=== PATIENT | male | born 1935 | race Caucasian/White ===

== ENCOUNTER 2020-07-17 09:46 | Inpatient (IN) | payer OTHER ==
--- OUTSIDE RECORDS SUMMARY | 2020-07-17 09:48 | XMS REPORT | Continuity of Care Document ---
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 Diabetes 1-24 Family mellitus Mellitus 00:00: Practi c 00 e Neuropathy Neuropathy Problem Active [place] due to Due to 7-16 Family diabetes Diabetes 00:00: Practi c mellitus Mellitus 00 e Hypothyroi Hypothyroi Problem Active 2018-02 [place] dism dism 2-18 Family 00:00: Practic 00 e Hyperchole Hyperchole Problem Active 2018-02 [place] sterolemia sterolemia 2-18 Fa avel 00:00: Practic 00 e Essential Essential Problem Active 2018-02 Marry xenia hypertensi Hypertensi 2-02 Fa avel on on 00:00: Practic 00 e Allergies, Adverse Reactions, Alerts This patient has no known allergies or adverse reactions. Social History Smoking Status Start Date Stop Date Source Former Smoker [facility] Family P ractice Medications Ordered Filled Start Stop Current Ordering Indication Dosage Frequency Signature Comments Components Source Medication Medication Date Date Medication? Clinician (SIG) Name Name atorvastati atorvastati No 1 Q1D atorvastat [facility] n 40 mg n 40 mg in 40 mg Famil y tablet Take tablet Take tablet Practic 1 tablet 1 tablet Take 1 e every day every day tablet by oral by oral every day route. route. by oral route. gabapentin gabapentin No 1capsul TID gabapentin [facility] 100 mg 100 mg e(s) 100 mg Family capsule capsule capsule Practi c Take 1 Take 1 Take 1 e capsule 3 capsule 3 capsule 3 times a day times a day times a by oral by oral day by route. route. oral route. glipizide glipizide No 1 Q1D glipizide [facility] 10 mg 10 mg 10 mg Family tablet Take tablet Take tablet Practic 1 tablet 1 tablet Take 1 e every day every day tablet by oral by oral every day route. route. by oral route. hydroxyzine hydroxyzine No 1 TID hydroxyzin [facility] HCl 25 mg HCl 25 mg e HCl 25 F amily tablet Take tablet Take mg tablet Practic 1 tablet 3 1 tablet 3 Take 1 e times a day times a day tablet 3 by oral by oral times a route. route. day by oral route. Levemir Levemir No Levemir [place] e FlexTouch FlexTouch FlexTouch Family U-100 U-100 U-100 Practic Insulin 100 Insulin 100 Insulin e unit/mL (3 unit/mL (3 100 mL) mL) unit/mL (3 subcutaneou subcutaneou mL) s pen s pen subcutaneo Inject by Inject by us pen subcutaneou subcutaneou Inject by s route. s route. subcutaneo us route. levothyroxi levothyroxi No 1capsul Q1D levothyrox [facility] ne 50 mcg ne 50 mcg e(s) ine 50 mcg Family capsule capsule capsule Practi c Take 1 Take 1 Take 1 e capsule capsule capsule every day every day every day by oral by oral by oral route. route. route. losartan 25 losartan 25 No 1 Q1D losartan [place] mg tablet mg tablet 25 mg Fami ly Take 1 Take 1 tablet Practic tablet tablet Take 1 e every day every day tablet by oral by oral every day route. route. by oral route. metformin metformin No 1 BID metformin [facility] 1,000 mg 1,000 mg 1,000 mg Fam sheree tablet Take tablet Take tablet Practic 1 tablet 1 tablet Take 1 e twice a day twice a day tablet by oral by oral twice a route. route. day by oral route. Immunizations Ordered Immunization Filled Immunization Date Status Commen ts Source Name Name influenza, influenza, 2000-01-23 Completed [facility] injectable, injectable, 00:00:00 Practice quadrivalent quadrivalent Procedures This patient has no known procedures. Plan of Care Planned Activity Planned Date Details Comments Source Future Appointment 2020-09-13 00:00:00 Mee Lois daniel [facility] De[place]re, [address]; [address], [place] [address] Instructions [facility] Encounters Start End Encounter Admission Attending Care Care Encounter Source Date/Time Date/Time Type Type Clinicians Facility Department ID 2020-03-14 2020-03-14 Mee [facility] [place] - [id number] [place] 00:00:00 00:00:00 NimeshCarl wilcox DIRECTOR MEDICAL ECONOMICS: Medical - Practi c [email or web address]_ [facility], [address] [address], [place] [address] , Ph. Results This patient has no known results.
[2020-07-17 10:35] LABS: Absolute Lymphocytes (CBC) 1.4 K/uL (0.7-4.9); Basophils % 0.6 % (0-1.3); Lymphocytes % 19.7 % (15.3-44.8); MPV 11.5 fL (7.6-11.3)
[2020-07-17 10:43] LABS: Protime INR 0.97
[2020-07-17 10:44] LABS: Arterial Blood Carboxyhemoglob 1.2 % (0-1.5); Blood Gas Oxyhemoglobin 92.7 % (94-97); Blood O2 Saturation 94.7 % (92-98.5)
[2020-07-17 11:10] LABS: Albumin 3.7 g/dL (3.4-5.0); Bilirubin Direct 0.2 mg/dL (0-0.2); Bilirubin Total 0.6 mg/dL (0.2-1.0); Protein, Total 6.9 g/dL (6.4-8.2); Troponin (Emerg Dept Use Only) 0.03 ng/mL (0.0-0.045)
[2020-07-17 11:13] LABS: Magnesium 1.7 mg/dL (1.8-2.4); Potassium 4.3 mmol/L (3.5-5.1)
--- NOTE | 2020-07-17 11:58 | ER ---
Nurse's Notes [facility] Name: Kevin Duffy Age: 85 yrs Sex: Male : 1935 Arrival Date: 07/17/2020 Time: 09:48 Bed 7 Private MD: Diagnosis: Acute dyspnea. R/O Sepsis. Numbness left leg Presentation: 07/17 09:48 Chief complaint: EMS states: Toned out for SOB since this morning,cough x 2 weeks pt jl7 sitting in the house and started sweating, once O2 was placed on pt he reported improvement in symptoms. Coronavirus screen: Client denies travel out of the [place] in the last 14 days. At this time, the client does not indicate any symptoms associated with coronavirus-19. Ebola Screen: No symptoms or risks identified at this time. Initial Sepsis Screen: Does the patient meet any 2 criteria? No. Patient's initial sepsis screen is negative. Does the patient have a suspected source of infection? No. Patient's initial sepsis screen is negative. Risk Assessment: Do you want to hurt yourself or someone else? Patient reports no desire to harm self or others. Onset of symptoms was July 17, 2020. Care prior to arrival: None. 09:48 Method Of Arrival: EMS: [facility] 09:48 Acuity: XIMENA 2 jl7 Triage Assessment: 09:50 General: Appears distressed, uncomfortable, Behavior is calm, cooperative, appropriate jl7 for age. Pain: Denies pain. Neuro: Level of Consciousness is awake, alert, obeys commands, Oriented to person, place, time, situation. Cardiovascular: Rhythm is sinus rhythm. Respiratory: Reports shortness of breath at rest Airway is patent Respiratory effort is even, unlabored, Respiratory pattern is regular, symmetrical, Onset: The symptoms/episode began/occurred suddenly, the patient reports symptoms have resolved. Derm: Skin is diaphoretic, Skin is normal, Skin temperature is warm. Historical: - Allergies: 10:11 No Known Allergies; jl7 - Home Meds: 10:11 losartan 25 mg oral tab [Active]; metformin 500 mg Oral tab [Active]; hydroxyzine HCl jl7 25 mg Oral tab [Active]; levothyroxine 50 mcg tab [Active]; gabapentin 100 mg oral cap [Active]; glipizide 10 mg Oral tab [Active]; atorvastatin 40 mg oral tab [Active]; - PMHx: 10:11 Hypertension; Diabetes - NIDDM; Hypothyroidism; jl7 - PSHx: 10:11 None; jl7 - Immunization history:: Adult Immunizations up to date, Client reports receiving the 2nd dose of the Covid vaccine, Date received: May 23, 2020. - Social history:: Smoking status: Patient denies any tobacco usage or history of. Screenin:13 Abuse screen: Denies threats or abuse. Denies injuries from another. Nutritional jl7 screening: No deficits noted. Tuberculosis screening: No symptoms or risk factors identified. Fall Risk IV access (20 points). Total Parrish Fall Scale indicates No Risk (0-24 pts). Assessment: 09:50 General: See triage assessment. jl7 10:05 Reassessment: Daughter at bedside. jl7 11:50 Reassessment: Pt to CT. hb 12:04 Reassessment: Pt returned from CT. hb 13:00 Reassessment: Patient appears in no apparent distress at this time. No changes from [facility] previously documented assessment. Patient and/or family updated on plan of care and expected duration. Pain level reassessed. Patient is alert, oriented x 3, equal unlabored respirations, skin warm/dry/pink. 14:00 Reassessment: Patient appears in no apparent distress at this time. No changes from [facility] previously documented assessment. Patient and/or family updated on plan of care and expected duration. Pain level reassessed. Patient is alert, oriented x 3, equal unlabored respirations, skin warm/dry/pink. Vital Signs: 09:48 BP 180 / 95; Pulse 106; Resp 18; Pulse Ox 93% ; Pain 0/10; jl7 10:13 BP 163 / 79; Pulse 98; Resp 19 S; Pulse Ox 94% on R/A; Weight 106.59 kg (R); Height 6 jl7 ft. 3 in. (190.50 cm); Pain 0/10; 11:00 BP 152 / 80; Pulse 97; Resp 19; Pulse Ox 95% ; jl7 12:00 BP 157 / 84; Pulse 99; Resp 17; Pulse Ox 95% ; jl7 13:00 BP 164 / 78; Pulse 97; Resp 17; Pulse Ox 93% ; jl7 14:00 BP 154 / 88; Pulse 93; Resp 16; Pulse Ox 93% ; jl7 14:30 BP 150 / 80; Pulse 96; Resp 17; Pulse Ox 93% ; jl7 10:13 Body Mass Index 29.37 (106.59 kg, 190.50 cm) jl7 ED Course: 09:48 Patient arrived in ED. jl7 09:50 Arm band placed on right wrist. EKG completed in triage. Results shown to MD. jl7 09:50 Patient has correct armband on for positive identification. Placed in gown. Bed in low jl7 position. Call light in reach. Side rails up X2. school lunch monitor on. Pulse ox on. NIBP on. 09:51 Triage completed. jl7 09:54 Srinivas Us MD is Attending Physician. pkl 10:02 Blayne Espinal RN is Primary Nurse. jl7 10:20 Inserted saline lock: 20 gauge in right antecubital area, using aseptic technique. jl7 Blood collected. 10:20 Initial lab(s) drawn, by mo, sent to lab. First set of blood cultures drawn by me. jl7 Inserted. 10:24 Second set of blood cultures drawn by me. jl7 10:28 COVID swab sent to lab. jl7 10:41 Basic Metabolic Panel Sent. jl7 10:41 CBC with Diff Sent. jl7 10:41 LFT's Sent. jl7 10:41 Magnesium Sent. jl7 10:54 XRAY Chest (1 view) In Process Unspecified. EDMS 11:55 Michael Temple DO is Hospitalizing Provider. pkl 12:00 CT Chest For PE Angio In Process Unspecified. EDMS 14:48 No provider procedures requiring assistance completed. Patient admitted, IV remains in jl7 place. intact, No redness/swelling at site. 14:48 Repeat lab(s) drawn. by mo, sent to lab. jl7 Administered Medications: 12:07 Drug: NS 0.9% 500 ml Route: IV; Rate: bolus; Site: right antecubital; jl7 12:45 Follow up: Response: No adverse reaction; IV Status: Completed infusion; IV Intake: jl7 500ml 13:11 Drug: NS 0.9% 1000 ml Route: IV; Rate: 100 ml/hr; Site: right antecubital; jl7 14:30 Follow up: Response: No adverse reaction; IV Status: Infusion continued upon admission jl7 Intake: 12:45 IV: 500ml; Total: 500ml. jl7 Outcome: 11:57 Decision to Hospitalize by Provider. pkgregory 14:50 Admitted to Tele accompanied by tech, via wheelchair, room 231, with chart, Report jl7 called to [facility] Mcmillan 14:50 Condition: stable 14:50 Discharge instructions given to patient, Instructed on the need for admit, Demonstrated understanding of instructions. 15:20 Patient left the ED. jl7 Signatures: Dispatcher [employer] EDSrinivas Hinds MD MD pkJoanna Vigil, RN RN Blayne Hill RN RN jl7
--- NOTE | 2020-07-17 11:58 | EDPHYS ---
Physician Documentation [facility] Name: Kevin Duffy Age: 85 yrs Sex: Male : 1935 Arrival Date: 07/17/2020 Time: 09:48 Bed 7 Private MD: ED Physician Srinivas Us HPI: 07/17 10:03 This 85 yrs old Male presents to ER via EMS with complaints of Shortness Of pkl Breath. 10:03 The patient has shortness of breath at rest. Onset: The symptoms/episode began/occurred pkl 2 week(s) ago, and became worse today. Associated signs and symptoms: Pertinent positives: non-productive cough, numbness left leg started yesterday. Historical: - Allergies: 10:11 No Known Allergies; jl7 - Home Meds: 10:11 losartan 25 mg oral tab [Active]; metformin 500 mg Oral tab [Active]; hydroxyzine HCl jl7 25 mg Oral tab [Active]; levothyroxine 50 mcg tab [Active]; gabapentin 100 mg oral cap [Active]; glipizide 10 mg Oral tab [Active]; atorvastatin 40 mg oral tab [Active]; - PMHx: 10:11 Hypertension; Diabetes - NIDDM; Hypothyroidism; jl7 - PSHx: 10:11 None; jl7 - Immunization history:: Adult Immunizations up to date, Client reports receiving the 2nd dose of the Covid vaccine, Date received: May 23, 2020. - Social history:: Smoking status: Patient denies any tobacco usage or history of. ROS: 10:03 Eyes: Negative for injury, pain, redness, and discharge, ENT: Negative for injury, pkl pain, and discharge, Neck: Negative for injury, pain, and swelling, Cardiovascular: Negative for chest pain, palpitations, and edema. 10:03 Respiratory: Positive for cough, with no reported sputum, shortness of breath, at rest. 10:03 Abdomen/GI: Negative for abdominal pain, nausea, vomiting, and diarrhea. 10:03 Back: Negative for acute changes. 10:03 : Negative for urinary symptoms. 10:03 MS/extremity: Positive for paresthesias, of the left leg. 10:03 Skin: Negative for rash. 10:03 Neuro: Positive for numbness, of the left leg, Negative for altered mental status, loss of consciousness. Exam: 10:03 Head/Face: Normocephalic, atraumatic. Eyes: Pupils equal round and reactive to light, pkl extra-ocular motions intact. Lids and lashes normal. Conjunctiva and sclera are non-icteric and not injected. Cornea within normal limits. Periorbital areas with no swelling, redness, or edema. ENT: Nares patent. No nasal discharge, no septal abnormalities noted. Tympanic membranes are normal and external auditory canals are clear. Oropharynx with no redness, swelling, or masses, exudates, or evidence of obstruction, uvula midline. Mucous membranes moist. Neck: Trachea midline, no thyromegaly or masses palpated, and no cervical lymphadenopathy. Supple, full range of motion without nuchal rigidity, or vertebral point tenderness. No Meningismus. Chest/axilla: Normal chest wall appearance and motion. Nontender with no deformity. No lesions are appreciated. Cardiovascular: Regular rate and rhythm with a normal S1 and S2. No gallops, murmurs, or rubs. Normal PMI, no JVD. No pulse deficits. 10:03 Respiratory: mild respiratory distress is noted, Respirations: labored breathing, that is mild, Breath sounds: rales, that are mild, are scattered. 10:03 Abdomen/GI: Bowel sounds: normal, Palpation: abdomen is soft and non-tender, in all quadrants. 10:03 Back: Exam negative for acute changes. 10:03 : Exam negative for acute changes. 10:03 Musculoskeletal/extremity: Extremities: grossly normal except: noted in the numbness left le:03 Skin: Exam negative for rash. 10:03 Neuro: Orientation: appropriate for stated age, Mentation: is normal, Cranial nerves: grossly normal, Motor: is normal, Sensation: numbness, that is mild, of the left leg. Vital Signs: 09:48 BP 180 / 95; Pulse 106; Resp 18; Pulse Ox 93% ; Pain 0/10; jl7 10:13 BP 163 / 79; Pulse 98; Resp 19 S; Pulse Ox 94% on R/A; Weight 106.59 kg (R); Height 6 jl7 ft. 3 in. (190.50 cm); Pain 0/10; 11:00 BP 152 / 80; Pulse 97; Resp 19; Pulse Ox 95% ; jl7 12:00 BP 157 / 84; Pulse 99; Resp 17; Pulse Ox 95% ; 7 13:00 BP 164 / 78; Pulse 97; Resp 17; Pulse Ox 93% ; 7 14:00 BP 154 / 88; Pulse 93; Resp 16; Pulse Ox 93% ; 7 14:30 BP 150 / 80; Pulse 96; Resp 17; Pulse Ox 93% ; 7 10:13 Body Mass Index 29.37 (106.59 kg, 190.50 cm) [facility] MDM: 09:54 Patient medically screened. pkl 11:53 Data reviewed: vital signs, nurses notes, lab test result(s), EKG, radiologic studies, pkl CT scan, plain films. ED course: Acure dyspnea. R/O Sepsis. Numbness left leg. 11:53 ED course: talked to Elias ( BUSINESS CONTINUITY DIRECTOR ) for observation ( Dr. Temple ). pk 07/17 10:13 Order name: Basic Metabolic Panel pk 07/17 10:13 Order name: CBC with Diff pk 07/17 10:13 Order name: LFT's pk 07/17 10:13 Order name: Magnesium pk 07/17 10:13 Order name: NT PRO-BNP; Complete Time: 11:32 pk 07/17 10:13 Order name: PT-INR; Complete Time: 10:56 pk 07/17 10:13 Order name: Troponin (emerg Dept Use Only); Complete Time: 11:32 pk 07/17 10:13 Order name: D-Dimer; Complete Time: 10:56 pk 07/17 10:13 Order name: Blood Culture Adult (2) pk 07/17 10:13 Order name: ABG; Complete Time: 10:56 pk 07/17 10:13 Order name: Basic Metabolic Panel; Complete Time: 11:32 EDMS 07/17 10:13 Order name: CBC with Automated Diff; Complete Time: 10:56 EDAL 07/17 10:13 Order name: Liver (Hepatic) Function; Complete Time: 11:32 EDMS 07/17 10:13 Order name: XRAY Chest (1 view) pk 07/17 10:13 Order name: EKG; Complete Time: 10:14 pk 07/17 10:13 Order name: Cardiac monitoring; Complete Time: 10:16 pkl 07/17 10:13 Order name: EKG - Nurse/Tech; Complete Time: 10:15 pkl 07/17 10:13 Order name: IV Saline Lock; Complete Time: 10:40 pkl 07/17 10:13 Order name: Labs collected and sent; Complete Time: 10:40 pkl 07/17 10:13 Order name: Magnesium; Complete Time: 11:32 EDMS 07/17 10:14 Order name: Lactate; Complete Time: 11:32 pkl 07/17 11:35 Order name: CT Chest For PE Angio; Complete Time: 12:26 pkl 07/17 11:45 Order name: SARS-COV-2 RT PCR; Complete Time: 11:52 EDMS 07/17 13:17 Order name: Brain Wo Cont EDMS 07/17 10:13 Order name: O2 Per Protocol; Complete Time: 10:16 pkl 07/17 10:13 Order name: O2 Sat Monitoring; Complete Time: 10:16 pkl Administered Medications: 12:07 Drug: NS 0.9% 500 ml Route: IV; Rate: bolus; Site: right antecubital; jl7 12:45 Follow up: Response: No adverse reaction; IV Status: Completed infusion; IV Intake: jl7 500ml 13:11 Drug: NS 0.9% 1000 ml Route: IV; Rate: 100 ml/hr; Site: right antecubital; jl7 14:30 Follow up: Response: No adverse reaction; IV Status: Infusion continued upon admission jl7 Disposition: 07/17/20 11:57 Hospitalization ordered by Michael Temple for Observation. Preliminary diagnosis is Acute dyspnea. R/O Sepsis. Numbness left leg. - Bed requested for Telemetry/MedSurg (observation). - Status is Observation. jl7 - Condition is Stable. - Problem is new. - Symptoms are unchanged. Signatures: Dispatcher [employer] EDAL Glenna Alonso Pin, MD MD pkl Leal, Jahala, RN RN jl7 Corrections: (The following items were deleted from the chart) 10:54 10:23 CORONAVIRUS+MR.LAB.BRZ ordered. EDAL EDMS 14:13 11:57 Hospitalization Ordered by Michael Temple DO for Observation. Preliminary bd diagnosis is Acute dyspnea. R/O Sepsis. Numbness left leg. Bed requested for Telemetry/MedSurg (observation). Status is Observation. Condition is Stable. Problem is new. Symptoms are unchanged. pkl 15:20 14:13 07/17/2020 11:57 Hospitalization Ordered by Michael Temple DO for Observation. jl7 Preliminary diagnosis is Acute dyspnea. R/O Sepsis. Numbness left leg. Bed requested for Telemetry/MedSurg (observation). Status is Observation. Condition is Stable. Problem is new. Symptoms are unchanged. bd
--- NOTE | 2020-07-17 12:08 | RAD REPORT ---
EXAM DESCRIPTION: CT - Chest For Pe Angio - 07/17/2020 12:00 pm CLINICAL HISTORY: Chest pain. DYSPNEA COMPARISON: No comparisons TECHNIQUE: CT angiogram of the pulmonary arteries was performed with MIP. All CT scans are performed using dose optimization technique as appropriate and may include automated exposure control or mA/KV adjustment according to patient size. FINDINGS: No evidence of pulmonary thromboembolism. No acute aortic finding demonstrated. The lungs are mildly emphysematous but clear of acute infiltrate. No significant pericardial or pleural fluid. No concerning bony finding. Esophagus is dilated with a small hiatal hernia present. IMPRESSION: No evidence of pulmonary thromboembolism. Mild diffuse COPD is present. Mild hiatal hernia with mild dilatation of the esophagus present containing food stuff.
--- NOTE | 2020-07-17 12:37 | RAD REPORT ---
EXAM DESCRIPTION: RAD - Chest Single View - 07/17/2020 10:54 am CLINICAL HISTORY: DYSPNEA Chest pain. COMPARISON: Chest Pa And Lat (2 Views) dated 07/04/2020; CHEST SINGLE VIEW dated 10/26/2011; CHEST PA A ND LAT 2 VIEW dated 08/20/2008; Chest For Pe Angio dated 07/17/2020 FINDINGS: Portable technique limits examination quality. The lungs are mildly emphysematous but grossly clear. The heart is normal in size. No displaced fract ures. IMPRESSION: Mild COPD.
[2020-07-17] MEDS ORDERED: LABETALOL 20 MG/4ML SYRINGE IV PRN (14:35)
[2020-07-17] MEDS ORDERED: SODIUM CHLORIDE 0.9% 10ML INJ IV PRN (14:39)
--- NOTE | 2020-07-17 14:48 | P.HP ---
Certification for Inpatient Patient admitted to: Observation With expected LOS: <2 Midnights Patient will require the following post-hospital care: None Practitioner: I am a practitioner with admitting privileges, knowledge of patient current condition, hospital course, and medical plan of care. Services: Services provided to patient in accordance with Admission requirements found in Title 42 Section 412.3 of the Code of Federal Regulations Patient History Date of Service: 07/17/20 Reason for admission: SOB, dizzness History of Present Illness: Patient is an 85-year-old male with a past medical history significant for hypothyroidism, hypertension, hyperlipidemia, DM 2, anxiety disorder who presents with complaint of shortness of breath that has been ongoing for the past 2 weeks . Patient also reports that he has been having bilateral lower extremity weakness for some time now. Patient reports associated signs and symptoms of left leg numbness, cough and dizziness. Patient reported that he gets dizzy whenever he bend down for the past 1 year. Patient followed up with his building wrecker recently and was scheduled for a stress test next week per patient report. Patient denies any other signs and symptoms. Symptoms are aggravated with his exertion and relieved by nothing. Patient decided to present to the hospital due to worsening symptoms. Allergies amoxicillin [Amoxicillin] Adverse Reaction (Verified 10/26/11 10:49) increase in blood sugar Home medications list reviewed: No Home Medications: Insulin Detemir [Levemir] 52 units SQ DAILY WITH BREAKFAST 10/26/11 Levothyroxine Sodium [Synthroid] 50 mcg PO DAILY 10/26/11 Atorvastatin Calcium 40 mg PO BEDTIME 07/17/20 Dextromethorphan/Guaifenesin 15 ml PO Q6H PRN 07/17/20 Gabapentin 100 mg PO BID 07/17/20 Insulin Detemir [Levemir] 18 - 20 unit SQ BEDTIME 07/17/20 Losartan Potassium 25 mg PO BEDTIME 07/17/20 Metformin HCl 1,000 mg PO BIDWM 07/17/20 Multivitamin 1 each PO DAILY 07/17/20 glipiZIDE [Glipizide] 10 mg PO BIDWM 07/17/20 hydrOXYzine HCL [Atarax*] 1 tab PO BEDTIME 07/17/20 - Past Medical/Surgical History Diabetic: Yes -: DM 2. -: Hypertension -: Hypothyroidism -: Hyperlipidemia - Social History Smoking Status: Never smoker Alcohol use: No CD- Drugs: No Caffeine use: Yes Place of Residence: Home Review of Systems General: Unremarkable Eyes: Unremarkable ENT: Unremarkable Respiratory: Cough, Shortness of Breath, SOB with Excertion Cardiovascular: Other (Dizziness ) Gastrointestinal: Unremarkable Genitourinary: Unremarkable Musculoskeletal: Unremarkable Integumentary: Unremarkable Neurological: Weakness, Numbness Lymphatics: Unremarkable Physical Examination - Physical Exam General: Alert, Oriented x3 HEENT: Atraumatic, PERRLA, Mucous membr. moist/pink, EOMI, Sclerae nonicteric Neck: Supple, 2+ carotid pulse no bruit, No LAD, Without JVD or thyroid abnormality Respiratory: Clear to auscultation bilaterally, Normal air movement, Diminished Cardiovascular: No edema, Regular rate/rhythm, Normal S1 S2 Capillary refill: Brisk Gastrointestinal: Normal bowel sounds, No tenderness Musculoskeletal: No clubbing, No tenderness Integumentary: No rashes Neurological: Normal gait, Normal speech, Normal affect, Other Lymphatics: No axilla or inguinal lymphadenopathy External genitalia: Deferred Rectal: Deferred - Studies Laboratory Data (last 24 hrs) 07/17/20 10:24: PT 11.2, INR 0.97 07/17/20 10:24: WBC 7.00, Hgb 16.2, Hct 47.0, Plt Count 143 L 07/17/20 10:24: Sodium 136, Potassium 4.3, BUN 19 H, Creatinine 1.04, Glucose 158 H, Magnesium 1.7 L, Total Bilirubin 0.6, AST 20, ALT 34, Alkaline Phosphatase 83 Assessment and Plan - Plan --Acute on chronic COPD exacerbation. CT chest indicates mild COPD. Patient placed on nebulizer treatment with Atrovent\ albuterol. Continue steroids and O2 therapy. CT angiogram negative for PE. --Elevated BNP. Patient placed on Lasix IV. Echocardiogram pending. Patient reported that he was scheduled for a stress test for next week with his cardiologistDR Williamson. Cardiology consulted. Will await further recommendations. --Dizziness. Echocardiogram and carotid Doppler pending. We will get some Orthostatic vital signs. Fall precautions. Accident Report Clerk on board. Further management per building wrecker. --Hypertension. Poorly controlled. Continue home medications and labetalol p.r.n.. --Hyperlipidemia. Continue statin. --Anxiety disorder. Continue home medication. --Bilateral lower extremity weakness. MRI brain pending for further assessment. Fall precautions. Continued Supportive care --DM 2. BS monitoring with sliding scale insulin. --Hypothyroidism. Continue Synthriod. --Hiata Hernia. Mild hiatal hernia with mild dilatation of the esophagus present containing food stuff noted in CT imaging. Dysphagia screening ordered before resumption of diet. --DVT prophylaxis with heparin subQ --GI prophylaxis with Protonix IV Discharge Plan: Home Plan to discharge in: 48 Hours - Advance Directives Does patient have a Living Will: No Does patient have a Durable POA for Healthcare: No - Code Status/Comfort Care Code Status Assessed: Yes Code Status: Full Code Critical Care: No
[2020-07-17] MEDS ORDERED: HYDROCODONE/APAP 5/325 MG TAB PO PRN (15:20)
[2020-07-17] MEDS ORDERED: ACETAMINOPHEN 500 MG TAB PO PRN (15:20)
[2020-07-17] MEDS ORDERED: ONDANSETRON 4 MG/2 ML VIAL IV PRN (15:20)
[2020-07-17 16:28] VITALS: BMI 29.6
[2020-07-17] MEDS: INSULIN -REGULAR HUMAN 50 UNIT/0.5 ML ML SQ SCH ×2 (16:30→20:40)
[2020-07-17] MEDS ORDERED: PNEUMOCOCCAL VACCINE 0.5 ML IMVAC ONE (17:00)
[2020-07-17] MEDS ORDERED: FUROSEMIDE 20 MG/ 2ML VIAL IV SCH (17:00)
[2020-07-17] MEDS: METHYLPREDNISOLONE 40 MG INJ IV SCH (17:23)
[2020-07-17] MEDS: HEPARIN 5000 UNIT/ML 1 ML VIAL SQ SCH (17:34)
--- NOTE | 2020-07-17 17:54 | RAD REPORT ---
EXAM DESCRIPTION: USCarotid Artery Bilateral07/17/2020 5:09 pm CLINICAL HISTORY: syncope COMPARISON: None FINDINGS: The velocity of the right internal carotid artery equals 79 cm/sec. The right ICA/CCA rat io .9 The velocity of the left internal carotid artery equals 71 cm/sec. The left ICA/CCA ratio 1. Mild to moderate plaque within the internal carotid arteries. Mild to moderate plaque within the external carotid arteries Neither vertebral artery visualized IMPRESSION: Mild to moderate plaque within the internal carotid arteries without evidence of a hemod ynamically significant stenosis NASCET criteria used. Mild 0-49% stenosis Moderate 50-69% stenosis Severe 70-99% stenosis
[2020-07-17] MEDS ORDERED: MAGNESIUM SULFATE 1 gm IVPB 1 GM/100 ML BAG IV ONE (18:00)
[2020-07-17] MEDS: ALBUTEROL 2.5 MG/3 ML NEB SOL NEB SCH (20:20)
[2020-07-17] MEDS: IPRATROPIUM BROM 0.5MG/2.5ML NEB SCH (20:20)
[2020-07-17] MEDS: hydrOXYzine HCL 25 MG TAB PO SCH (21:00)
[2020-07-18] MEDS: HEPARIN 5000 UNIT/ML 1 ML VIAL SQ SCH ×3 (00:22→16:55)
[2020-07-18] MEDS: METHYLPREDNISOLONE 40 MG INJ IV SCH (00:22)
[2020-07-18] MEDS: IPRATROPIUM BROM 0.5MG/2.5ML NEB SCH ×4 (01:10→20:05)
[2020-07-18] MEDS: ALBUTEROL 2.5 MG/3 ML NEB SOL NEB SCH ×4 (01:10→20:05)
[2020-07-18 04:28] LABS: Urine Appearance CLEAR (Clear); Urine Bilirubin NEGATIVE (Negative); Urine Blood NEGATIVE (Negative); Urine Color YELLOW (Yellow); Urine Glucose NEGATIVE (Negative); Urine Protein NEGATIVE (Negative); Urine Urobilinogen 0.2 mg/dL (0.2-1.0)
[2020-07-18 04:42] LABS: Urine Microscopic Reflex NO UMIC
[2020-07-18 04:55] LABS: Absolute Lymphocytes (CBC) 0.8 K/uL (0.7-4.9); Basophils % 0.1 % (0-1.3); Hematocrit 43.6 % (39.6-49.0); Lymphocytes % 12.9 % (15.3-44.8); MPV 11.3 fL (7.6-11.3); RBC Red Blood Cell Count 4.73 M/uL (4.33-5.43)
[2020-07-18 05:06] LABS: Magnesium 2.1 mg/dL (1.8-2.4); Potassium 4.4 mmol/L (3.5-5.1)
[2020-07-18 06:52] LABS: Blood Morphology Comment NOT SEEN (NOT SEEN); Platelet Estimate ADEQ
[2020-07-18] MEDS: LEVOTHYROXINE SOD 0.05 MG TABLET PO SCH (07:30)
[2020-07-18] MEDS: INSULIN -REGULAR HUMAN 50 UNIT/0.5 ML ML SQ SCH ×5 (07:30→20:53)
[2020-07-18] MEDS: MULTIVIT W/ MINERAL TAB PO SCH (08:44)
[2020-07-18] MEDS: GABAPENTIN 100 MG CAP PO SCH ×2 (08:44→20:51)
[2020-07-18] MEDS ORDERED: PANTOPRAZOLE 40 MG INJ IVP SCH (09:00)
[2020-07-18] MEDS ORDERED: predniSONE 10 MG TAB PO SCH (09:00)
--- NOTE | 2020-07-18 09:01 | EKG ---
Test Date: 2020-07-17 Test Time: 09:46:49 Coat Examiner: MILLY MEASUREMENT RESULTS: Intervals: Rate: 105 WI: 188 QRSD: 114 QT: 356 QTc: 470 [place]: P: 86 WI: 188 QRS: -62 T: 81 INTERPRETIVE STATEMENTS: Sinus tachycardia Left anterior fascicular block Cannot rule out Anterior infarct, age undetermined Abnormal ECG Compared to ECG 10/26/2011 12:38:17 Left anterior fascicular block now present Sinus rhythm no longer present Ventricular premature complex(es) no longer present Left-axis deviation no longer present Myocardial infarct finding still present Electronically Signed On 07-18-20 08:59:00 CDT by Duncan Williamson
--- NOTE | 2020-07-18 09:18 | RAD REPORT ---
EXAM DESCRIPTION: RAD - Chest Pa And Lat (2 Views) - 07/18/2020 5:24 am CLINICAL HISTORY: SOB Chest pain. COMPARISON: Chest Single View dated 07/17/2020; Chest Pa And Lat (2 Views) dated 07/04/2020; CHEST SIN GLE VIEW dated 10/26/2011; CHEST PA AND LAT 2 VIEW dated 08/20/2008 FINDINGS: The lungs are clear. The heart is normal in size. No displaced fractures. Tortuous thoraci c aorta.
[2020-07-18] MEDS ORDERED: D50W 25 GM/50 ML SYRINGE IV PRN (11:24)
[2020-07-18] MEDS ORDERED: GLUCAGON 1 MG/VIAL IM PRN (11:24)
--- NOTE | 2020-07-18 11:36 | P.DS ---
Admission Date: 07/17/20 Discharge Date: 07/18/20 Primary Care Provider: [facility];Cardiology-Dr. Williamson Disposition: ROUTINE DISCHARGE Discharge Condition: GOOD Reason for Admission: SOB, dizzness Consultations: Cardiology-Dr. Williamson Procedures: COVID: [Negative] CXR: FINDINGS: Portable technique limits examination quality. The lungs are mildly emphysematous but grossly clear. The heart is normal in size. No displaced fractures. IMPRESSION: Mild COPD. CT Scan: FINDINGS: No evidence of pulmonary thromboembolism. No acute aortic finding demonstrated. The lungs are mildly emphysematous but clear of acute infiltrate. No significant pericardial or pleural fluid. No concerning bony finding. Esophagus is dilated with a small hiatal hernia present. IMPRESSION: No evidence of pulmonary thromboembolism. Mild diffuse COPD is present. Mild hiatal hernia with mild dilatation of the esophagus present containing food stuff. Follow up CXR: COMPARISON: Chest Single View dated 07/17/2020; Chest Pa And Lat (2 Views) dated 07/04/2020; CHEST SINGLE VIEW dated 10/26/2011; CHEST PA AND LAT 2 VIEW dated 08/20/2008 FINDINGS: The lungs are clear. The heart is normal in size. No displaced fractures. Tortuous thoracic aorta. 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 Patient also reports that he has been having bilateral lower extremity weakness for some time now. Patient reports associated signs and symptoms of left leg numbness, cough and dizziness. Patient reported that he gets dizzy whenever he bend down for the past 1 year. Patient followed up with his city supervisor recently and was scheduled for a stress test next week per patient report. Patient denies any other signs and symptoms. Patient was admitted for further evaluation and treatment. Hospital Course: Patient presented with dyspnea secondary to suspected COPD exacerbation. Patient with history of tobacco abuse. Patient was seen and evaluated. Cardiac enzymes unremarkable. Patient seen by cardiology as well. No indication of CHF. CT chest showed COPD changes. No pulmonary embolism noted. Patient was given IV steroids with improvement. At discharge the patient is without significant shortness of breath. COPD medication has been started. Patient will continue with Symbicort 2 puffs twice daily and albuterol 2 puffs 3 times a day as needed for shortness of breath. At discharge the patient was evaluated for home oxygen. Patient qualifies. Patient will continue with home oxygen to maintain sats above 93%. Patient currently on 2 L per nasal cannula. Recommend follow-up with pulmonology as an outpatient to further address and monitor. Oxygen can be weaned off with the help of his PCP or pulmonology. Patient with hypertension. This is uncontrolled. Patient was seen by cardiology. Cardiology recommended to increase losartan. Blood pressure improved. At discharge patient will continue with increased dose of losartan to 50 mg daily. Recommend to maintain blood pressure less than 130/80. Further adjustment can be done by his PCP or cardiology. Patient will need to follow-up with cardiology in 1 to 2 weeks to follow-up hospitalization. Patient is to have outpatient echocardiogram and cardiac stress test with cardiology. Patient with hyperlipidemia. At discharge patient will continue with Lipitor 40 mg daily. Patient with diabetes mellitus type 2. Patient insulin-dependent. At discharge patient will continue with his current medications of Levemir 52 units every a.m. and 18 units every p.m. Patient also takes Metformin and glipizide. Patient will continue with his current medications. Recommend to maintain blood sugars less than 140 fasting and less than 200 after meals. Further adjustment can be done by his PCP. Patient with hypothyroidism. At discharge patient will continue with Levoxyl 25 mcg daily. Recommend to recheck free T4 and TSH in 4 to 6 weeks to monitor his progress. Patient with GERD and hiatal hernia. This was indicated on CT scan. Recommend to start Protonix 40 mg daily. Patient may benefit with GI evaluation as an outpatient after cardiac evaluation. Patient with diabetic neuropathy. At discharge patient will continue with gabapentin as directed. Vital Signs/Physical Exam: Temp Pulse Resp BP Pulse Ox 97.5 F 83 18 134/82 92 07/18/20 08:00 07/18/20 08:00 07/18/20 08:00 07/18/20 08:00 07/18/20 08:00 General: Alert, In no apparent distress, Oriented x3, Cooperative HEENT: Atraumatic Neck: Supple Respiratory: Clear to auscultation bilaterally, Normal air movement Cardiovascular: Normal pulses, Regular rate/rhythm Gastrointestinal: Normal bowel sounds, Soft and benign, Non-distended, No tenderness, No masses, No rebound, No guarding Musculoskeletal: No erythema, No tenderness, No warmth Integumentary: No tenderness/swelling Neurological: Normal speech, Normal strength at 5/5 x4 extr, Normal tone, Normal affect Laboratory Data at Discharge: WBC 6.30 K/uL (4.3-10.9) 07/18/20 04:07 Hgb 15.1 g/dL (13.6-17.9) 07/18/20 04:07 Hct 43.6 % (39.6-49.0) 07/18/20 04:07 Plt Count 131 K/uL (152-406) L 07/18/20 04:07 PT 11.2 SECONDS (9.5-12.5) 07/17/20 10:24 INR 0.97 07/17/20 10:24 Sodium 138 mmol/L (136-145) 07/18/20 04:07 Potassium 4.4 mmol/L (3.5-5.1) 07/18/20 04:07 BUN 24 mg/dL (7-18) H 07/18/20 04:07 Creatinine 1.17 mg/dL (0.55-1.3) 07/18/20 04:07 Glucose 350 mg/dL (74-106) H 07/18/20 04:07 Magnesium 2.1 mg/dL (1.8-2.4) 07/18/20 04:07 Total Bilirubin 0.6 mg/dL (0.2-1.0) 07/17/20 10:24 AST 20 U/L (15-37) 07/17/20 10:24 ALT 34 U/L (12-78) 07/17/20 10:24 Alkaline Phosphatase 83 U/L (45-117) 07/17/20 10:24 Troponin I 0.06 ng/mL (0.0-0.045) H 07/17/20 15:45 Home Medications: Insulin Detemir [Levemir] 52 units SQ DAILY WITH BREAKFAST 10/26/11 Levothyroxine Sodium [Synthroid] 50 mcg PO DAILY 10/26/11 Atorvastatin Calcium 40 mg PO BEDTIME 07/17/20 Dextromethorphan/Guaifenesin 15 ml PO Q6H PRN 07/17/20 Gabapentin 100 mg PO BID 07/17/20 Insulin Detemir [Levemir] 18 - 20 unit SQ BEDTIME 07/17/20 Metformin HCl 1,000 mg PO BIDWM 07/17/20 Multivitamin 1 each PO DAILY 07/17/20 glipiZIDE [Glipizide] 10 mg PO BIDWM 07/17/20 hydrOXYzine HCL [Atarax*] 1 tab PO BEDTIME 07/17/20 Albuterol Sulfate [Proair Hfa] 2 puff IH TID PRN #1 [email or web address] 07/18/20 Budesonide/Formoterol Fumarate [Symbicort 160-4.5 Mcg Inhaler] 2 puff IH BID #1 hfa.[email or web address] 07/18/20 Losartan Potassium 50 mg PO DAILY #30 tablet 07/18/20 Pantoprazole [Protonix Tab] 40 mg PO DAILY #30 tab 07/18/20 New Medications: Losartan Potassium 50 mg PO DAILY #30 tablet Albuterol Sulfate [Proair Hfa] 2 puff IH TID PRN #1 hfa.[email or web address] PRN Reason: Shortness Of Breath Pantoprazole [Protonix Tab] 40 mg PO DAILY #30 tab Budesonide/Formoterol Fumarate [Symbicort 160-4.5 Mcg Inhaler] 2 puff IH BID #1 hfa.aer.ad Physician Discharge Instructions: Patient presented with dyspnea secondary to suspected COPD exacerbation. Patient with history of tobacco abuse. Patient was seen and evaluated. Cardiac enzymes unremarkable. Patient seen by cardiology as well. No indication of CHF. CT chest showed COPD changes. No pulmonary embolism noted. Patient was given IV steroids with improvement. At discharge the patient is without significant shortness of breath. COPD medication has been started. Patient will continue with Symbicort 2 puffs twice daily and albuterol 2 puffs 3 times a day as needed for shortness of breath. At discharge the patient was evaluated for home oxygen. Patient qualifies. Patient will continue with home oxygen to maintain sats above 93%. Patient currently on 2 L per nasal cannula. Recommend follow-up with pulmonology as an outpatient to further address and monitor. Oxygen can be weaned off with the help of his PCP or pulmonology. Patient with hypertension. This is uncontrolled. Patient was seen by cardiology. Cardiology recommended to increase losartan. Blood pressure improved. At discharge patient will continue with increased dose of losartan to 50 mg daily. Recommend to maintain blood pressure less than 130/80. Further adjustment can be done by his PCP or cardiology. Patient will need to follow-up with cardiology in 1 to 2 weeks to follow-up hospitalization. Patient is to have outpatient echocardiogram and cardiac stress test with cardiology. Patient with hyperlipidemia. At discharge patient will continue with Lipitor 40 mg daily. Patient with diabetes mellitus type 2. Patient insulin-dependent. At discharge patient will continue with his current medications of Levemir 52 units every a.m. and 18 units every p.m. Patient also takes Metformin and glipizide. Patient will continue with his current medications. Recommend to maintain blood sugars less than 140 fasting and less than 200 after meals. Further adjustment can be done by his PCP. Patient with hypothyroidism. At discharge patient will continue with Levoxyl 25 mcg daily. Recommend to recheck free T4 and TSH in 4 to 6 weeks to monitor his progress. Patient with GERD and hiatal hernia. This was indicated on CT scan. Recommend to start Protonix 40 mg daily. Patient may benefit with GI evaluation as an outpatient after cardiac evaluation. Patient with diabetic neuropathy. At discharge patient will continue with gabapentin as directed. Diet: ADA Activity: Ad pebbles Followup: HEIKE BURROUGHS [Primary Care Provider] - Time spent managing pt's care (in minutes): 55
[2020-07-18] MEDS: LOSARTAN POTASSIUM 50 MG TABLET PO SCH (20:46)
[2020-07-18] MEDS: hydrOXYzine HCL 25 MG TAB PO SCH (20:50)
[2020-07-18] MEDS: ATORVASTATIN 40 MG TAB PO SCH (20:50)
[2020-07-18] MEDS ORDERED: INSULIN GLARGINE 100 UNITS/ML SQ SCH (21:00)
[2020-07-19] MEDS: HEPARIN 5000 UNIT/ML 1 ML VIAL SQ SCH ×3 (00:50→17:01)
[2020-07-19] MEDS: ALBUTEROL 2.5 MG/3 ML NEB SOL NEB SCH ×4 (01:47→20:20)
[2020-07-19] MEDS: IPRATROPIUM BROM 0.5MG/2.5ML NEB SCH ×4 (01:47→20:20)
[2020-07-19] MEDS: LEVOTHYROXINE SOD 0.05 MG TABLET PO SCH (06:30)
--- NOTE | 2020-07-19 08:46 | P.DS ---
Admission Date: 07/17/20 Discharge Date: 07/19/20 Primary Care Provider: [facility];Cardiology-Dr. Williamson Disposition: ROUTINE DISCHARGE Discharge Condition: GOOD Reason for Admission: SOB, dizzness Consultations: Cardiology-Dr. Williamson Procedures: COVID: [Negative] CXR: FINDINGS: Portable technique limits examination quality. The lungs are mildly emphysematous but grossly clear. The heart is normal in size. No displaced fractures. IMPRESSION: Mild COPD. CT Scan: FINDINGS: No evidence of pulmonary thromboembolism. No acute aortic finding demonstrated. The lungs are mildly emphysematous but clear of acute infiltrate. No significant pericardial or pleural fluid. No concerning bony finding. Esophagus is dilated with a small hiatal hernia present. IMPRESSION: No evidence of pulmonary thromboembolism. Mild diffuse COPD is present. Mild hiatal hernia with mild dilatation of the esophagus present containing food stuff. Follow up CXR: COMPARISON: Chest Single View dated 07/17/2020; Chest Pa And Lat (2 Views) dated 07/04/2020; CHEST SINGLE VIEW dated 10/26/2011; CHEST PA AND LAT 2 VIEW dated 08/20/2008 FINDINGS: The lungs are clear. The heart is normal in size. No displaced fractures. Tortuous thoracic aorta. 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 Patient also reports that he has been having bilateral lower extremity weakness for some time now. Patient reports associated signs and symptoms of left leg numbness, cough and dizziness. Patient reported that he gets dizzy whenever he bend down for the past 1 year. Patient followed up with his bilingual patient support caseworker recently and was scheduled for a stress test next week per patient report. Patient denies any other signs and symptoms. Patient was admitted for further evaluation and treatment. Hospital Course: Patient presented with dyspnea secondary to suspected COPD exacerbation. Patient with history of tobacco abuse. Patient was seen and evaluated. Cardiac enzymes unremarkable. Patient seen by cardiology as well. No indication of CHF. CT chest showed COPD changes. No pulmonary embolism noted. Patient was given IV steroids with improvement. At discharge the patient is without significant shortness of breath. COPD medication has been started. Patient will continue with Symbicort 2 puffs twice daily and albuterol 2 puffs 3 times a day as needed for shortness of breath. At discharge the patient was evaluated for home oxygen. Patient qualifies. Patient will continue with home oxygen to maintain sats above 93%. Patient currently on 2 L per nasal cannula. Recommend follow-up with pulmonology as an outpatient to further address and monitor. Oxygen can be weaned off with the help of his PCP or pulmonology. Discharge was delayed 1 day as oncology social worker was trying to arrange for home oxygen. Patient with hypertension. This is uncontrolled. Patient was seen by cardiology. Cardiology recommended to increase losartan. Blood pressure improved. At discharge patient will continue with increased dose of losartan to 50 mg daily. Recommend to maintain blood pressure less than 130/80. Further adjustment can be done by his PCP or cardiology. Patient will need to follow-up with cardiology in 1 to 2 weeks to follow-up hospitalization. Patient is to have outpatient echocardiogram and cardiac stress test with cardiology. Patient with hyperlipidemia. At discharge patient will continue with Lipitor 40 mg daily. Patient with diabetes mellitus type 2. Patient insulin-dependent. At discharge patient will continue with his current medications of Levemir 52 units every a.m. and 18 units every p.m. Patient also takes Metformin and glipizide. Patient will continue with his current medications. Recommend to maintain blood sugars less than 140 fasting and less than 200 after meals. Further adjustment can be done by his PCP. Patient with hypothyroidism. At discharge patient will continue with Levoxyl 25 mcg daily. Recommend to recheck free T4 and TSH in 4 to 6 weeks to monitor his progress. Patient with GERD and hiatal hernia. This was indicated on CT scan. Recommend to start Protonix 40 mg daily. Patient may benefit with GI evaluation as an outpatient after cardiac evaluation. Patient with diabetic neuropathy. At discharge patient will continue with gabapentin as directed. Vital Signs/Physical Exam: Temp Pulse Resp BP Pulse Ox 97.7 F 75 19 113/68 97 07/19/20 04:00 07/19/20 04:00 07/19/20 04:00 07/19/20 04:00 07/19/20 04:00 General: Alert, In no apparent distress, Oriented x3, Cooperative HEENT: Atraumatic Neck: Supple Respiratory: Clear to auscultation bilaterally, Normal air movement Cardiovascular: Normal pulses, Regular rate/rhythm Gastrointestinal: Normal bowel sounds Integumentary: No tenderness/swelling Neurological: Normal speech, Normal strength at 5/5 x4 extr, Normal tone, Normal affect Laboratory Data at Discharge: WBC 6.30 K/uL (4.3-10.9) 07/18/20 04:07 Hgb 15.1 g/dL (13.6-17.9) 07/18/20 04:07 Hct 43.6 % (39.6-49.0) 07/18/20 04:07 Plt Count 131 K/uL (152-406) L 07/18/20 04:07 PT 11.2 SECONDS (9.5-12.5) 07/17/20 10:24 INR 0.97 07/17/20 10:24 Sodium 138 mmol/L (136-145) 07/18/20 04:07 Potassium 4.4 mmol/L (3.5-5.1) 07/18/20 04:07 BUN 24 mg/dL (7-18) H 07/18/20 04:07 Creatinine 1.17 mg/dL (0.55-1.3) 07/18/20 04:07 Glucose 350 mg/dL (74-106) H 07/18/20 04:07 Magnesium 2.1 mg/dL (1.8-2.4) 07/18/20 04:07 Total Bilirubin 0.6 mg/dL (0.2-1.0) 07/17/20 10:24 AST 20 U/L (15-37) 07/17/20 10:24 ALT 34 U/L (12-78) 07/17/20 10:24 Alkaline Phosphatase 83 U/L (45-117) 07/17/20 10:24 Troponin I 0.06 ng/mL (0.0-0.045) H 07/17/20 15:45 Home Medications: Insulin Detemir [Levemir] 52 units SQ DAILY WITH BREAKFAST 10/26/11 Levothyroxine Sodium [Synthroid] 50 mcg PO DAILY 10/26/11 Atorvastatin Calcium 40 mg PO BEDTIME 07/17/20 Dextromethorphan/Guaifenesin 15 ml PO Q6H PRN 07/17/20 Gabapentin 100 mg PO BID 07/17/20 Insulin Detemir [Levemir] 18 - 20 unit SQ BEDTIME 07/17/20 Metformin HCl 1,000 mg PO BIDWM 07/17/20 Multivitamin 1 each PO DAILY 07/17/20 glipiZIDE [Glipizide] 10 mg PO BIDWM 07/17/20 hydrOXYzine HCL [Atarax*] 1 tab PO BEDTIME 07/17/20 Albuterol Sulfate [Proair Hfa] 2 puff IH TID PRN #1 [email or web address] 07/18/20 Budesonide/Formoterol Fumarate [Symbicort 160-4.5 Mcg Inhaler] 2 puff IH BID #1 [email or web address] 07/18/20 Losartan Potassium 50 mg PO DAILY #30 tablet 07/18/20 Pantoprazole [Protonix Tab] 40 mg PO DAILY #30 tab 07/18/20 New Medications: Losartan Potassium 50 mg PO DAILY #30 tablet Albuterol Sulfate [Proair Hfa] 2 puff IH TID PRN #1 [email or web address] PRN Reason: Shortness Of Breath Pantoprazole [Protonix Tab] 40 mg PO DAILY #30 tab Budesonide/Formoterol Fumarate [Symbicort 160-4.5 Mcg Inhaler] 2 puff IH BID #1 [email or web address] Physician Discharge Instructions: Patient presented with dyspnea secondary to suspected COPD exacerbation. Patient with history of tobacco abuse. Patient was seen and evaluated. Cardiac enzymes unremarkable. Patient seen by cardiology as well. No indication of CHF. CT chest showed COPD changes. No pulmonary embolism noted. Patient was given IV steroids with improvement. At discharge the patient is without significant shortness of breath. COPD medication has been started. Patient will continue with Symbicort 2 puffs twice daily and albuterol 2 puffs 3 times a day as needed for shortness of breath. At discharge the patient was evaluated for home oxygen. Patient qualifies. Patient will continue with home oxygen to maintain sats above 93%. Patient currently on 2 L per nasal cannula. Recommend follow-up with pulmonology as an outpatient to further address and monitor. Oxygen can be weaned off with the help of his PCP or pulmonology. Discharge was delayed 1 day as oncology social worker was trying to arrange for home oxygen. Patient with hypertension. This is uncontrolled. Patient was seen by cardiology. Cardiology recommended to increase losartan. Blood pressure improved. At discharge patient will continue with increased dose of losartan to 50 mg daily. Recommend to maintain blood pressure less than 130/80. Further adjustment can be done by his PCP or cardiology. Patient will need to follow-up with cardiology in 1 to 2 weeks to follow-up hospitalization. Patient is to have outpatient echocardiogram and cardiac stress test with cardiology. Patient with hyperlipidemia. At discharge patient will continue with Lipitor 40 mg daily. Patient with diabetes mellitus type 2. Patient insulin-dependent. At discharge patient will continue with his current medications of Levemir 52 units every a.m. and 18 units every p.m. Patient also takes Metformin and glipizide. Patient will continue with his current medications. Recommend to maintain blood sugars less than 140 fasting and less than 200 after meals. Further adjustment can be done by his PCP. Patient with hypothyroidism. At discharge patient will continue with Levoxyl 25 mcg daily. Recommend to recheck free T4 and TSH in 4 to 6 weeks to monitor his progress. Patient with GERD and hiatal hernia. This was indicated on CT scan. Recommend to start Protonix 40 mg daily. Patient may benefit with GI evaluation as an outpatient after cardiac evaluation. Patient with diabetic neuropathy. At discharge patient will continue with gabapentin as directed. Diet: ADA Activity: Ad pebbles Followup: Juan Alberto Stanley MD [ACTIVE - CAN ADMIT] - Duncan Williamson MD [ACTIVE - CAN ADMIT] - HEIKE BURROUGHS [Primary Care Provider] - Time spent managing pt's care (in minutes): 55
[2020-07-19] MEDS: GABAPENTIN 100 MG CAP PO SCH ×2 (09:00→21:00)
[2020-07-19] MEDS ORDERED: predniSONE 10 MG TAB PO SCH (09:00)
[2020-07-19] MEDS: INSULIN -REGULAR HUMAN 50 UNIT/0.5 ML ML SQ SCH ×4 (09:43→20:51)
[2020-07-19] MEDS: INSULIN GLARGINE 100 UNITS/ML SQ SCH ×2 (09:45→20:51)
[2020-07-19] MEDS: PANTOPRAZOLE 40MG TABLET PO SCH (09:46)
[2020-07-19] MEDS: MULTIVIT W/ MINERAL TAB PO SCH (09:46)
[2020-07-19] MEDS ORDERED: D50W 25 GM/50 ML VIAL IV PRN (15:00)
[2020-07-19] MEDS: hydrOXYzine HCL 25 MG TAB PO SCH (21:00)
[2020-07-19] MEDS: LOSARTAN POTASSIUM 50 MG TABLET PO SCH (21:00)
[2020-07-19] MEDS: ATORVASTATIN 40 MG TAB PO SCH (21:00)
[2020-07-20] MEDS: HEPARIN 5000 UNIT/ML 1 ML VIAL SQ SCH ×3 (00:22→17:20)
[2020-07-20] MEDS: IPRATROPIUM BROM 0.5MG/2.5ML NEB SCH ×4 (01:40→19:45)
[2020-07-20] MEDS: ALBUTEROL 2.5 MG/3 ML NEB SOL NEB SCH (01:40)
[2020-07-20] MEDS: LEVOTHYROXINE SOD 0.05 MG TABLET PO SCH (06:25)
--- NOTE | 2020-07-20 07:57 | P.DS ---
Admission Date: 07/19/20 Discharge Date: 07/20/20 Primary Care Provider: [facility];Cardiology-Dr. Williamson Disposition: ROUTINE DISCHARGE Discharge Condition: GOOD Reason for Admission: SOB, dizzness Consultations: Cardiology-Dr. Williamson Procedures: COVID: [Negative] CXR: FINDINGS: Portable technique limits examination quality. The lungs are mildly emphysematous but grossly clear. The heart is normal in size. No displaced fractures. IMPRESSION: Mild COPD. CT Scan: FINDINGS: No evidence of pulmonary thromboembolism. No acute aortic finding demonstrated. The lungs are mildly emphysematous but clear of acute infiltrate. No significant pericardial or pleural fluid. No concerning bony finding. Esophagus is dilated with a small hiatal hernia present. IMPRESSION: No evidence of pulmonary thromboembolism. Mild diffuse COPD is present. Mild hiatal hernia with mild dilatation of the esophagus present containing food stuff. Follow up CXR: COMPARISON: Chest Single View dated 07/17/2020; Chest Pa And Lat (2 Views) dated 07/04/2020; CHEST SINGLE VIEW dated 10/26/2011; CHEST PA AND LAT 2 VIEW dated 08/20/2008 FINDINGS: The lungs are clear. The heart is normal in size. No displaced fractures. Tortuous thoracic aorta. 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 Patient also reports that he has been having bilateral lower extremity weakness for some time now. Patient reports associated signs and symptoms of left leg numbness, cough and dizziness. Patient reported that he gets dizzy whenever he bend down for the past 1 year. Patient followed up with his twister tender paper recently and was scheduled for a stress test next week per patient report. Patient denies any other signs and symptoms. Patient was admitted for further evaluation and treatment. Hospital Course: Patient presented with dyspnea secondary to suspected COPD exacerbation. Patient with history of tobacco abuse. Patient was seen and evaluated. Cardiac enzymes unremarkable. Patient seen by cardiology as well. No indication of CHF. CT chest showed COPD changes. No pulmonary embolism noted. Patient was given IV steroids with improvement. At discharge the patient is without significant shortness of breath. COPD medication has been started. Patient will continue with Symbicort 2 puffs twice daily and albuterol 2 puffs 3 times a day as needed for shortness of breath. At discharge the patient was evaluated for home oxygen. Patient qualifies. Patient will continue with home oxygen to maintain sats above 93%. Patient currently on 2 L per nasal cannula. Recommend follow-up with pulmonology as an outpatient to further address and monitor. Oxygen can be weaned off with the help of his PCP or pulmonology. Discharge was delayed as home oxygen needed to be arranged. Patient with hypertension. This is uncontrolled. Patient was seen by cardiology. Cardiology recommended to increase losartan. Blood pressure improved. At discharge patient will continue with increased dose of losartan to 50 mg daily. Recommend to maintain blood pressure less than 130/80. Further adjustment can be done by his PCP or cardiology. Patient will need to follow-up with cardiology in 1 to 2 weeks to follow-up hospitalization. Patient is to have outpatient echocardiogram and cardiac stress test with cardiology. Patient with hyperlipidemia. At discharge patient will continue with Lipitor 40 mg daily. Patient with diabetes mellitus type 2. Patient insulin-dependent. At discharge patient will continue with his current medications of Levemir 52 units every a.m. and 18 units every p.m. Patient also takes Metformin and glipizide. Patient will continue with his current medications. Recommend to maintain blood sugars less than 140 fasting and less than 200 after meals. Further adjustment can be done by his PCP. Patient with hypothyroidism. At discharge patient will continue with Levoxyl 25 mcg daily. Recommend to recheck free T4 and TSH in 4 to 6 weeks to monitor his progress. Patient with GERD and hiatal hernia. This was indicated on CT scan. Recommend to start Protonix 40 mg daily. Patient may benefit with GI evaluation as an outpatient after cardiac evaluation. Patient with diabetic neuropathy. At discharge patient will continue with gabapentin as directed. Vital Signs/Physical Exam: Temp Pulse Resp BP Pulse Ox 97.6 F 65 16 120/62 94 07/20/20 04:00 07/20/20 04:00 07/20/20 04:00 07/20/20 04:00 07/20/20 04:00 General: Alert, In no apparent distress, Oriented x3, Cooperative HEENT: Atraumatic Neck: Supple Respiratory: Clear to auscultation bilaterally, Normal air movement Cardiovascular: Normal pulses, Regular rate/rhythm Gastrointestinal: Normal bowel sounds, No tenderness, No masses, No rebound, No guarding Musculoskeletal: No erythema, No tenderness, No warmth Integumentary: No tenderness/swelling Neurological: Normal speech, Normal strength at 5/5 x4 extr, Normal tone, Normal affect Laboratory Data at Discharge: WBC 6.30 K/uL (4.3-10.9) 07/18/20 04:07 Hgb 15.1 g/dL (13.6-17.9) 07/18/20 04:07 Hct 43.6 % (39.6-49.0) 07/18/20 04:07 Plt Count 131 K/uL (152-406) L 07/18/20 04:07 PT 11.2 SECONDS (9.5-12.5) 07/17/20 10:24 INR 0.97 07/17/20 10:24 Sodium 138 mmol/L (136-145) 07/18/20 04:07 Potassium 4.4 mmol/L (3.5-5.1) 07/18/20 04:07 BUN 24 mg/dL (7-18) H 07/18/20 04:07 Creatinine 1.17 mg/dL (0.55-1.3) 07/18/20 04:07 Glucose 350 mg/dL (74-106) H 07/18/20 04:07 Magnesium 2.1 mg/dL (1.8-2.4) 07/18/20 04:07 Total Bilirubin 0.6 mg/dL (0.2-1.0) 07/17/20 10:24 AST 20 U/L (15-37) 07/17/20 10:24 ALT 34 U/L (12-78) 07/17/20 10:24 Alkaline Phosphatase 83 U/L (45-117) 07/17/20 10:24 Troponin I 0.06 ng/mL (0.0-0.045) H 07/17/20 15:45 Home Medications: Insulin Detemir [Levemir] 52 units SQ DAILY WITH BREAKFAST 10/26/11 Levothyroxine Sodium [Synthroid] 50 mcg PO DAILY 10/26/11 Atorvastatin Calcium 40 mg PO BEDTIME 07/17/20 Dextromethorphan/Guaifenesin 15 ml PO Q6H PRN 07/17/20 Gabapentin 100 mg PO BID 07/17/20 Insulin Detemir [Levemir] 18 - 20 unit SQ BEDTIME 07/17/20 Metformin HCl 1,000 mg PO BIDWM 07/17/20 Multivitamin 1 each PO DAILY 07/17/20 glipiZIDE [Glipizide] 10 mg PO BIDWM 07/17/20 hydrOXYzine HCL [Atarax*] 1 tab PO BEDTIME 07/17/20 Albuterol Sulfate [Proair Hfa] 2 puff IH TID PRN #1 [email or web address] 07/18/20 Budesonide/Formoterol Fumarate [Symbicort 160-4.5 Mcg Inhaler] 2 puff IH BID #1 [email or web address] 07/18/20 Losartan Potassium 50 mg PO DAILY #30 tablet 07/18/20 Pantoprazole [Protonix Tab] 40 mg PO DAILY #30 tab 07/18/20 New Medications: Losartan Potassium 50 mg PO DAILY #30 tablet Albuterol Sulfate [Proair Hfa] 2 puff IH TID PRN #1 [email or web address] PRN Reason: Shortness Of Breath Pantoprazole [Protonix Tab] 40 mg PO DAILY #30 tab Budesonide/Formoterol Fumarate [Symbicort 160-4.5 Mcg Inhaler] 2 puff IH BID #1 [email or web address].ad Physician Discharge Instructions: Patient presented with dyspnea secondary to suspected COPD exacerbation. Patient with history of tobacco abuse. Patient was seen and evaluated. Cardiac enzymes unremarkable. Patient seen by cardiology as well. No indication of CHF. CT chest showed COPD changes. No pulmonary embolism noted. Patient was given IV steroids with improvement. At discharge the patient is without significant shortness of breath. COPD medication has been started. Patient will continue with Symbicort 2 puffs twice daily and albuterol 2 puffs 3 times a day as needed for shortness of breath. At discharge the patient was evaluated for home oxygen. Patient qualifies. Patient will continue with home oxygen to maintain sats above 93%. Patient currently on 2 L per nasal cannula. Recommend follow-up with pulmonology as an outpatient to further address and monitor. Oxygen can be weaned off with the help of his PCP or pulmonology. Discharge was delayed as oxygen needed to be arranged with his insurance Patient with hypertension. This is uncontrolled. Patient was seen by cardiology. Cardiology recommended to increase losartan. Blood pressure improved. At discharge patient will continue with increased dose of losartan to 50 mg daily. Recommend to maintain blood pressure less than 130/80. Further adjustment can be done by his PCP or cardiology. Patient will need to follow-up with cardiology in 1 to 2 weeks to follow-up hospitalization. Patient is to have outpatient echocardiogram and cardiac stress test with cardiology. Patient with hyperlipidemia. At discharge patient will continue with Lipitor 40 mg daily. Patient with diabetes mellitus type 2. Patient insulin-dependent. At discharge patient will continue with his current medications of Levemir 52 units every a.m. and 18 units every p.m. Patient also takes Metformin and glipizide. Patient will continue with his current medications. Recommend to maintain blood sugars less than 140 fasting and less than 200 after meals. Further adjustment can be done by his PCP. Patient with hypothyroidism. At discharge patient will continue with Levoxyl 25 mcg daily. Recommend to recheck free T4 and TSH in 4 to 6 weeks to monitor his progress. Patient with GERD and hiatal hernia. This was indicated on CT scan. Recommend to start Protonix 40 mg daily. Patient may benefit with GI evaluation as an outpatient after cardiac evaluation. Patient with diabetic neuropathy. At discharge patient will continue with gabapentin as directed. Diet: ADA Activity: Ad pebbles Followup: Juan Alberto Stanley MD [ACTIVE - CAN ADMIT] - Duncan Williamson MD [ACTIVE - CAN ADMIT] - HoneyOTHEIKE [Primary Care Provider] - Time spent managing pt's care (in minutes): 55
[2020-07-20] MEDS ORDERED: ALBUTEROL 2.5 MG/3 ML NEB SOL NEB PRN (07:58)
[2020-07-20] MEDS: INSULIN GLARGINE 100 UNITS/ML SQ SCH ×2 (09:00→21:00)
[2020-07-20] MEDS: INSULIN -REGULAR HUMAN 50 UNIT/0.5 ML ML SQ SCH ×4 (10:21→20:59)
[2020-07-20] MEDS: MULTIVIT W/ MINERAL TAB PO SCH (10:22)
[2020-07-20] MEDS: GABAPENTIN 100 MG CAP PO SCH ×2 (10:22→21:00)
[2020-07-20] MEDS: DULERA 100/5 (MOMETASONE/FORMOTEROL) INHALER IH SCH ×2 (10:31→21:01)
[2020-07-20] MEDS: LOSARTAN POTASSIUM 50 MG TABLET PO SCH (21:00)
[2020-07-20] MEDS ORDERED: DOCUSATE NA 100 MG CAP PO SCH (21:00)
[2020-07-20] MEDS: hydrOXYzine HCL 25 MG TAB PO SCH (21:00)
[2020-07-20] MEDS: ATORVASTATIN 40 MG TAB PO SCH (21:00)
[2020-07-21] MEDS: HEPARIN 5000 UNIT/ML 1 ML VIAL SQ SCH (00:12)
[2020-07-21] MEDS: IPRATROPIUM BROM 0.5MG/2.5ML NEB SCH (01:54)
[2020-07-21 05:37] VITALS: O2SAT 96
[2020-07-21] MEDS: PANTOPRAZOLE 40MG TABLET PO SCH (06:05)
[2020-07-21] MEDS: LEVOTHYROXINE SOD 0.05 MG TABLET PO SCH (06:09)
[2020-07-21 06:14] VITALS: BP 110/61; TEMP 97.3
--- NOTE | 2020-07-21 07:44 | P.DS ---
Admission Date: 07/19/20 Discharge Date: 07/21/20 Primary Care Provider: [facility];Cardiology-Dr. Williamson Disposition: ROUTINE DISCHARGE Discharge Condition: GOOD Reason for Admission: SOB, dizzness Consultations: Cardiology-Dr. Williamson Procedures: COVID: [Negative] CXR: FINDINGS: Portable technique limits examination quality. The lungs are mildly emphysematous but grossly clear. The heart is normal in size. No displaced fractures. IMPRESSION: Mild COPD. CT Scan: FINDINGS: No evidence of pulmonary thromboembolism. No acute aortic finding demonstrated. The lungs are mildly emphysematous but clear of acute infiltrate. No significant pericardial or pleural fluid. No concerning bony finding. Esophagus is dilated with a small hiatal hernia present. IMPRESSION: No evidence of pulmonary thromboembolism. Mild diffuse COPD is present. Mild hiatal hernia with mild dilatation of the esophagus present containing food stuff. Follow up CXR: COMPARISON: Chest Single View dated 07/17/2020; Chest Pa And Lat (2 Views) dated 07/04/2020; CHEST SINGLE VIEW dated 10/26/2011; CHEST PA AND LAT 2 VIEW dated 08/20/2008 FINDINGS: The lungs are clear. The heart is normal in size. No displaced fractures. Tortuous thoracic aorta. 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 Patient also reports that he has been having bilateral lower extremity weakness for some time now. Patient reports associated signs and symptoms of left leg numbness, cough and dizziness. Patient reported that he gets dizzy whenever he bend down for the past 1 year. Patient followed up with his manager rfid recently and was scheduled for a stress test next week per patient report. Patient denies any other signs and symptoms. Patient was admitted for further evaluation and treatment. Hospital Course: Patient presented with dyspnea secondary to suspected COPD exacerbation. Patient with history of tobacco abuse. Patient was seen and evaluated. Cardiac enzymes unremarkable. Patient seen by cardiology as well. No indication of CHF. CT chest showed COPD changes. No pulmonary embolism noted. Patient was given IV steroids with improvement. At discharge the patient is without significant shortness of breath. COPD medication has been started. Patient will continue with Symbicort 2 puffs twice daily and albuterol 2 puffs 3 times a day as needed for shortness of breath. At discharge the patient was evaluated for home oxygen. Patient qualifies. Patient will continue with home oxygen to maintain sats above 93%. Patient currently on 2 L per nasal cannula. Recommend follow-up with pulmonology as an outpatient to further address and monitor. Oxygen can be weaned off with the help of his PCP or pulmonology. Discharge was delayed several days as home oxygen needed to be arranged. Patient with hypertension. This is uncontrolled. Patient was seen by cardiology. Cardiology recommended to increase losartan. Blood pressure improved. At discharge patient will continue with increased dose of losartan to 50 mg daily. Recommend to maintain blood pressure less than 130/80. Further adjustment can be done by his PCP or cardiology. Patient will need to follow-up with cardiology in 1 to 2 weeks to follow-up hospitalization. Patient is to have outpatient echocardiogram and cardiac stress test with cardiology. Patient with hyperlipidemia. At discharge patient will continue with Lipitor 40 mg daily. Patient with diabetes mellitus type 2. Patient insulin-dependent. At discharge patient will continue with his current medications of Levemir 52 units every a.m. and 18 units every p.m. Patient also takes Metformin and glipizide. Patient will continue with his current medications. Recommend to maintain blood sugars less than 140 fasting and less than 200 after meals. Further adjustment can be done by his PCP. Patient with hypothyroidism. At discharge patient will continue with Levoxyl 25 mcg daily. Recommend to recheck free T4 and TSH in 4 to 6 weeks to monitor his progress. Patient with GERD and hiatal hernia. This was indicated on CT scan. Recommend to start Protonix 40 mg daily. Patient may benefit with GI evaluation as an outpatient after cardiac evaluation. Patient with diabetic neuropathy. At discharge patient will continue with gabapentin as directed. Vital Signs/Physical Exam: Temp Pulse Resp BP Pulse Ox 97.3 F 69 18 110/61 96 07/21/20 04:00 07/21/20 04:00 07/21/20 04:00 07/21/20 04:00 07/21/20 04:00 General: Alert, In no apparent distress, Oriented x3, Cooperative HEENT: Atraumatic Neck: Supple Respiratory: Other (Patient currently on oxygen. No respiratory distress noted.) Cardiovascular: Normal pulses Gastrointestinal: No rebound, No guarding Integumentary: No tenderness/swelling Neurological: Normal speech, Normal strength at 5/5 x4 extr, Normal tone, Normal affect Laboratory Data at Discharge: WBC 6.30 K/uL (4.3-10.9) 07/18/20 04:07 Hgb 15.1 g/dL (13.6-17.9) 07/18/20 04:07 Hct 43.6 % (39.6-49.0) 07/18/20 04:07 Plt Count 131 K/uL (152-406) L 07/18/20 04:07 PT 11.2 SECONDS (9.5-12.5) 07/17/20 10:24 INR 0.97 07/17/20 10:24 Sodium 138 mmol/L (136-145) 07/18/20 04:07 Potassium 4.4 mmol/L (3.5-5.1) 07/18/20 04:07 BUN 24 mg/dL (7-18) H 07/18/20 04:07 Creatinine 1.17 mg/dL (0.55-1.3) 07/18/20 04:07 Glucose 350 mg/dL (74-106) H 07/18/20 04:07 Magnesium 2.1 mg/dL (1.8-2.4) 07/18/20 04:07 Total Bilirubin 0.6 mg/dL (0.2-1.0) 07/17/20 10:24 AST 20 U/L (15-37) 07/17/20 10:24 ALT 34 U/L (12-78) 07/17/20 10:24 Alkaline Phosphatase 83 U/L (45-117) 07/17/20 10:24 Troponin I 0.06 ng/mL (0.0-0.045) H 07/17/20 15:45 Home Medications: Insulin Detemir [Levemir] 52 units SQ DAILY WITH BREAKFAST 10/26/11 Levothyroxine Sodium [Synthroid] 50 mcg PO DAILY 10/26/11 Atorvastatin Calcium 40 mg PO BEDTIME 07/17/20 Dextromethorphan/Guaifenesin 15 ml PO Q6H PRN 07/17/20 Gabapentin 100 mg PO BID 07/17/20 Insulin Detemir [Levemir] 18 - 20 unit SQ BEDTIME 07/17/20 Metformin HCl 1,000 mg PO BIDWM 07/17/20 Multivitamin 1 each PO DAILY 07/17/20 glipiZIDE [Glipizide] 10 mg PO BIDWM 07/17/20 hydrOXYzine HCL [Atarax*] 1 tab PO BEDTIME 07/17/20 Albuterol Sulfate [Proair Hfa] 2 puff IH TID PRN #1 hfa.[email or web address] 07/18/20 Budesonide/Formoterol Fumarate [Symbicort 160-4.5 Mcg Inhaler] 2 puff IH BID #1 hfa.[email or web address] 07/18/20 Losartan Potassium 50 mg PO DAILY #30 tablet 07/18/20 Pantoprazole [Protonix Tab] 40 mg PO DAILY #30 tab 07/18/20 New Medications: Losartan Potassium 50 mg PO DAILY #30 tablet Albuterol Sulfate [Proair Hfa] 2 puff IH TID PRN #1 hfa.[email or web address] PRN Reason: Shortness Of Breath Pantoprazole [Protonix Tab] 40 mg PO DAILY #30 tab Budesonide/Formoterol Fumarate [Symbicort 160-4.5 Mcg Inhaler] 2 puff IH BID #1 hfa.aer.ad Physician Discharge Instructions: Patient presented with dyspnea secondary to suspected COPD exacerbation. Patient with history of tobacco abuse. Patient was seen and evaluated. Cardiac enzymes unremarkable. Patient seen by cardiology as well. No indication of CHF. CT chest showed COPD changes. No pulmonary embolism noted. Patient was given IV steroids with improvement. At discharge the patient is without significant shortness of breath. COPD medication has been started. Patient will continue with Symbicort 2 puffs twice daily and albuterol 2 puffs 3 times a day as needed for shortness of breath. At discharge the patient was evaluated for home oxygen. Patient qualifies. Patient will continue with home oxygen to maintain sats above 93%. Patient currently on 2 L per nasal cannula. Recommend follow-up with pulmonology as an outpatient to further address and monitor. Oxygen can be weaned off with the help of his PCP or pulmonology. Discharge was delayed several days as oxygen needed to be arranged with his insurance Patient with hypertension. This is uncontrolled. Patient was seen by cardiology. Cardiology recommended to increase losartan. Blood pressure improved. At discharge patient will continue with increased dose of losartan to 50 mg daily. Recommend to maintain blood pressure less than 130/80. Further adjustment can be done by his PCP or cardiology. Patient will need to follow-up with cardiology in 1 to 2 weeks to follow-up hospitalization. Patient is to have outpatient echocardiogram and cardiac stress test with cardiology. Patient with hyperlipidemia. At discharge patient will continue with Lipitor 40 mg daily. Patient with diabetes mellitus type 2. Patient insulin-dependent. At discharge patient will continue with his current medications of Levemir 52 units every a.m. and 18 units every p.m. Patient also takes Metformin and glipizide. Patient will continue with his current medications. Recommend to maintain blood sugars less than 140 fasting and less than 200 after meals. Further adjustment can be done by his PCP. Patient with hypothyroidism. At discharge patient will continue with Levoxyl 25 mcg daily. Recommend to recheck free T4 and TSH in 4 to 6 weeks to monitor his progress. Patient with GERD and hiatal hernia. This was indicated on CT scan. Recommend to start Protonix 40 mg daily. Patient may benefit with GI evaluation as an outpatient after cardiac evaluation. Patient with diabetic neuropathy. At discharge patient will continue with gabapentin as directed. Diet: ADA Activity: Ad pebbles Followup: Juan Alberto [place] MD [ACTIVE - CAN ADMIT] - Duncan Williamson MD [ACTIVE - CAN ADMIT] - HEIKE BURROUGHS [Primary Care Provider] - Time spent managing pt's care (in minutes): 55
--- NOTE | 2020-07-22 10:48 | CON ---
Date of Consultation: 07/18/2020 Reason For Consultation: Shortness of breath. History Of Present Illness: Mr. Duffy is an 85-year-old male who had been seen in the office for shor tness of breath and has had a plan to have a stress test and echocardiogram in the near future; [place], he went to the emergency room for worsening shortness of breath that has been going on for about 2 to 3 weeks, associated with some left leg numbness, but no chest pain. No nausea, vomiting, diapho resis, PND, orthopnea, pedal edema, palpitation, or syncope. He denies any fever or chills. Allergies: NONE. Medications: Include losartan, hydroxyzine, levothyroxine, Lipitor and gabapentin. Past Medical History: Positive for hypertension, diabetes, dyslipidemia, and hypothyroidism. Review of Systems: Negative. Social History: Negative. Family History: Noncontributory. Physical Examination: Vital Signs: Stable. He was afebrile. HEENT: Negative. Neck: Supple without any bruit, lymphadenopathy, JVD, or thyromegaly. Chest: Clear to auscultation and percussion. Cardiac: Revealed a regular rhythm and rate. No murmurs, gallops, or rubs. Abdomen: Benign. EXTREMITIES: Revealed no clubbing, cyanosis, or edema. Diagnostic Data: Only positive for elevated glucose level at 353. Rest of it was all unremarkable. His chest x-ray was negative except for some mild COPD. Carotid arteries ultrasound showed some mil h-vl-yqszgfbt plaquing without any significant stenosis. EKG showed sinus tachycardia with left ante rior hemiblock. Impression And Plan: Shortness of breath, most likely secondary to chronic obstructive pulmonary dis ease exacerbation. The patient appears to be comfortable at this point. He is getting inhalers. He get insulin for his hyperglycemia. He is on prednisone. He is on the pantoprazole. He is on levot hyroxine. I agree with his regimen. We will continue to plan cardiac workup as an outpatient. VAHID/DEBBI Voice ID: [id number] Report ID: [id number]
== END 2020-07-21 08:53 | disposition home or self-care (01) | DRG 192 ==
LOC: ER 09:46 → ERHOLD 13:25 → 2ND 14:54 → OBSVTOIN 07-19 15:23
PROVIDERS: ADMIT Family Medicine; ATTEND Family Medicine
DX: J44.1 Chronic obstructive pulmonary disease with (acute) exacerbation (principal); I10 Essential (primary) hypertension; E78.5 Hyperlipidemia, unspecified; F41.8 Other specified anxiety disorders; E11.40 Type 2 diabetes mellitus with diabetic neuropathy, unspecified; E03.9 Hypothyroidism, unspecified; K21.9 Gastro-esophageal reflux disease without esophagitis; K44.9 Diaphragmatic hernia without obstruction or gangrene; Z79.4 Long term (current) use of insulin; Z87.891 Personal history of nicotine dependence; Z20.822 Contact with and (suspected) exposure to COVID-19
CPT/HCPCS: 36415; 71045; 71046; 71275; 80048; 80076; 81003; 82805; 82947; 83036; 83605; 83735; 83880; 84484; 85025; 85379; 85610; 87040; 93005; 93880; 96360; 96361; 99285; C9113; J1644; J1815; J1940; J2920; J3475; J7512; J7606; Q9967; U0003

== ENCOUNTER 2020-09-02 07:20 | Day surgery (SDC) | payer OTHER ==
[2020-08-29 11:50] LABS: Absolute Lymphocytes (CBC) 2.2 K/uL (0.7-4.9); Basophils % 0.6 % (0-1.3); Hematocrit 45.4 % (39.6-49.0); MPV 11.2 fL (7.6-11.3); RBC Red Blood Cell Count 4.96 M/uL (4.33-5.43)
[2020-08-29 12:00] LABS: Protime INR 0.97
[2020-08-29 12:04] LABS: Potassium 4.5 mmol/L (3.5-5.1)
--- NOTE | 2020-08-30 07:46 | EKG ---
Test Date: 2020-08-29 Test Time: 10:31:57 Template Cutter: MARIELA MEASUREMENT RESULTS: Intervals: Rate: 92 WI: 190 QRSD: 114 QT: 372 QTc: 460 [place]: P: 79 WI: 190 QRS: -50 T: 70 INTERPRETIVE STATEMENTS: Sinus rhythm with occasional premature ventricular complexes Left anterior fascicular block Cannot rule out Inferior infarct (masked by fascicular block?), age undetermined Possible Anterior infarct, age undetermined Abnormal ECG Compared to ECG 07/17/2020 09:46:49 Ventricular premature complex(es) now present Sinus tachycardia no longer present Myocardial infarct finding still present Electronically Signed On 08-30-20 07:42:54 CDT by Duncan Williamson
[~2020-09-02 07:20] MED LIST: HEPA 1000U/500MLS 1,000 UNIT/500 ML BAG IV ONE
[2020-09-02] MEDS ORDERED: NA CHLORIDE 0.9% 500 ML ONE (08:03)
[2020-09-02] MEDS ORDERED: MIDAZOLAM HCL 2 MG/2 ML INJ ONE (08:26)
[2020-09-02] MEDS ORDERED: NA CHLORIDE 0.9% 0 ML ONE (08:27)
[2020-09-02] MEDS ORDERED: ATROPINE SULF 1 MG/10 ML SYR IV ONE (08:27)
[2020-09-02] MEDS ORDERED: FENTANYL CITR 100 MCG/2 ML ONE (08:27)
[2020-09-02] MEDS ORDERED: HEPA 1000U/500MLS 1,000 UNIT/500 ML BAG IV ONE (09:24)
--- NOTE | 2020-09-02 14:00 | OP ---
Date of Procedure: 09/02/2020 Surgeon: Duncan Williamson MD Procedure: An attempted left heart catheterization, thoracic aortic angiogram. Procedure In Detail: Mr. Duffy was brought to the laboratory machinist on 09/02/2020. He is 85, he has multiple cardiac risk factors for heart disease, abnormal stress test. The plan was for the heart catheteriza tion. He had a 6-Canadian sheath introduced in the right common femoral artery successfully using the Seldinger technique and 10 cc of xylocaine. I attempted to perform a heart catheterization routinely with a JL4. However, the wire was difficult to maneuver. Finally, we got the wire all the way down to the aortic root. However, I could not get the JL4 to reach the aortic root because of tortuosity and aortic arch in JL4 was too short to reach. JR4 could not cross the aortic arch. I decided to a bort the procedure. StarClose was used to close the case in the right groin. Angiography there was normal. I decided to perform an aortic arch thoracic aorta angiogram to rule out right-sided arch. Complications: There were no complications. Blood Loss: 5 mL. Postoperative Diagnosis: Abnormal aortic arch and root, unsuccessful heart catheterization secondary to inability for the JL4 and JR4 to reach the aortic root. We will plan a CT angiogram of the chest and a CT coronary angiogram as well in [place] down the road . Total conscious sedation was 30 minutes. The patient will go home today after 2 hours of bedrest. I will arrange for further workup down the road. VAHID/DEBBI Voice ID: [id number] Report ID: [id number]
[2020-09-02 15:42] VITALS: BP 133/75; TEMP 97.1; O2SAT 96
== END 2020-09-02 16:00 | disposition home or self-care (01) ==
LOC: CCL 07:20
PROC: 4A023N7 Measurement of Cardiac Sampling and Pressure, Left Heart, Percutaneous Approach (ICD-10-PCS; principal; 2020-09-02)
PROC: B300ZZZ Plain Radiography of Thoracic Aorta (ICD-10-PCS; 2020-09-02)
DX: R94.39 Abnormal result of other cardiovascular function study (principal); I70.0 Atherosclerosis of aorta; Q25.46 Tortuous aortic arch; I10 Essential (primary) hypertension; E11.9 Type 2 diabetes mellitus without complications; G62.9 Polyneuropathy, unspecified; J44.9 Chronic obstructive pulmonary disease, unspecified; E03.9 Hypothyroidism, unspecified
CPT/HCPCS: 93005; 85025; 80048; 36415; 85610; 82947 ×2; 85730; 93567; 93452; C1893; J2250; J3010; J7040; J1644 ×2; J0583

== ENCOUNTER 2020-10-03 10:35 | Day surgery (SDC) | payer OTHER ==
[2020-10-02 10:51] LABS: Absolute Lymphocytes (CBC) 1.8 K/uL (0.7-4.9); Basophils % 0.7 % (0-1.3); Hematocrit 45.9 % (39.6-49.0); Lymphocytes % 28.9 % (15.3-44.8); MPV 10.4 fL (7.6-11.3); RBC Red Blood Cell Count 4.99 M/uL (4.33-5.43)
[2020-10-02 11:06] LABS: Protime INR 0.99
[2020-10-02 11:11] LABS: Potassium 4.5 mmol/L (3.5-5.1)
--- NOTE | 2020-10-02 13:00 | EKG ---
Test Date: 2020-10-02 Test Time: 09:24:31 Aerologist: MARIA FERNANDA MEASUREMENT RESULTS: Intervals: Rate: 83 LA: 192 QRSD: 112 QT: 376 QTc: 441 [place]: P: 88 LA: 192 QRS: -63 T: 85 INTERPRETIVE STATEMENTS: Sinus rhythm with premature atrial complexes with aberrant conduction Pulmonary disease pattern Left anterior fascicular block Abnormal ECG Compared to ECG 08/29/2020 10:31:57 Atrial premature complex(es) now present Aberrant conduction of supraventricular beat(s) now present Ventricular premature complex(es) no longer present Myocardial infarct finding no longer present Electronically Signed On 10-02-20 12:59:11 CDT by Duncan Williamson
[2020-10-03] MEDS ORDERED: LIDOCAINE 1% 20 ML MDV ONE (10:41)
[2020-10-03] MEDS ORDERED: HEPA 1000U/500MLS 2,000 UNIT/1,000 ML BAG IV ONE (10:41)
[2020-10-03] MEDS ORDERED: NA CHLORIDE 0.9% 500 ML ONE (11:08)
[2020-10-03] MEDS ORDERED: MIDAZOLAM HCL 2 MG/2 ML INJ ONE (11:51)
[2020-10-03] MEDS ORDERED: HEPARIN 5000 UNIT/ML 1 ML VIAL ONE (11:52)
[2020-10-03] MEDS ORDERED: FENTANYL CITR 100 MCG/2 ML ONE (11:52)
[2020-10-03] MEDS ORDERED: VERAPAMIL HCL 10 MG/4 ML VIAL IV ONE (11:52)
[2020-10-03] MEDS ORDERED: ATROPINE SULF 1 MG/10 ML SYR IV ONE (11:52)
[2020-10-03] MEDS ORDERED: HEPARIN 10,000 UNIT/10 ML VIAL IV ONE (11:52)
[2020-10-03 14:44] VITALS: BP 105/57; TEMP 97.1; O2SAT 92
--- NOTE | 2020-10-03 18:43 | OP ---
Date of Procedure: 10/03/2020 Surgeon: CLARENCE ONEILL Procedure Performed: Selective coronary angiogram. Indication: Chest pain, abnormal stress test. Access: Right radial artery 6-Taiwanese closed with TR band. Complications: None. Bleeding: Less than 10 mL. Anesthesia: Total sedation time was 35 minutes. Description Of Procedure: After risks, benefits, and alternatives were explained, the patient agreed to procedure and signed informed consent. The patient was prepped and draped in usual sterile fashi on in the cardiac catheterization laboratory and then we gave fentanyl and Versed in incremental dose s to achieve adequate moderate sedation. Subsequently, I took a pediatric micropuncture kit and esta blished access through the right radial artery and placed a 6-Taiwanese Slender sheath and took a 5-Fren ch tiger 4.0 catheter into the aortic root, engaged the left main and right coronary artery, took sta ndard views and then removed the catheter and sheath, and placed a TR band with good hemostasis. Findings: 1.Left main is large with a 10% calcified stenosis, but no flow limitation. 2.LAD; moderate-size vessel, dual system, with mid 30% to 40% stenosis with MEME-3 flow. 3.Left circumflex is normal. 4.RCA is very large, dominant and supplies the inferior wall and apex territory, and no significant disease. Some minimal luminal irregularities of the right PLB. Conclusion: Yqmt-ue-anmymbrn nonobstructive coronary artery disease. Plan: Medical management. SR/MODL Voice ID: [id number] Report ID: [id number]
== END 2020-10-03 14:35 | disposition home or self-care (01) ==
LOC: CCL 10:35
PROVIDERS: ATTEND Internal Medicine
DX: I25.10 Atherosclerotic heart disease of native coronary artery without angina pectoris (principal); I73.9 Peripheral vascular disease, unspecified; I10 Essential (primary) hypertension; E78.2 Mixed hyperlipidemia; E11.9 Type 2 diabetes mellitus without complications; M15.0 Primary generalized (osteo)arthritis; E03.9 Hypothyroidism, unspecified; G62.9 Polyneuropathy, unspecified; Z87.891 Personal history of nicotine dependence; Z20.822 Contact with and (suspected) exposure to COVID-19
CPT/HCPCS: 93005; 85025; 80048; 36415; 85610; 82947 ×2; 85730; 93454; U0003; C1893; J1644 ×2; J2250; J3010; J7040

== ENCOUNTER 2021-11-24 00:39 | Emergency (ER) | payer OTHER ==
--- OUTSIDE RECORDS SUMMARY | 2021-11-24 00:42 | XMS REPORT | Continuity of Care Document ---
:1935 Author Organization [facility] t Address [address] [place] [address] Care Team Providers Name Role Phone Miller_S_AH Attending Clinician Unavailable Nimesh-Rosaayo_A_AH Attending Clinician Unavailable Miller_S_AH Admitting Clinician Unavailable Nimesh-Mbayo_A_AH Admitting Clinician Unavailable Payers Payer Name Policy Type Policy Number Effective Date Expiration Date S raymundo [facility] [place] - [id number] [employer] 00:00:00 (MEDICARE REPLACEMENT/ADVANT AGE - HMO) Problems Condition Condition Condition Status Onset Resolution Last Treating Co mments Source Name Details Category Date Date Treatment Clinician Date Type 2 Type 2 Problem Active [facility] diabetes Diabetes 1-24 Family mellitus Mellitus 00:00: [...] Start Date Stop Date Source [facility] Medications Ordered Filled Start Stop Current Ordering Indication Dosage Frequency Signature Comments Components Source Medication Medication Date Date Medication? Clinician (SIG) Name Name atorvastati atorvastati No 1 Q1D atorvastat [facility] n 40 mg n 40 mg in 40 mg Famil y tablet Take tablet Take tablet Practic 1 tablet 1 tablet Take 1 e every day every day tablet by oral by oral every day route. route. by oral route. gabapentin gabapentin No 1capsul TID gabapentin [facility] 100 mg 100 mg e(s) 100 mg Family capsule capsule capsule Practi c Take 1 Take 1 Take 1 e capsule 3 capsule 3 capsule 3 times a day times a day times a by oral by oral day by route. route. oral route. glipizide glipizide No 1 Q1D glipizide [facility] 10 mg 10 mg 10 mg Family tablet Take tablet Take tablet Practic 1 tablet 1 tablet Take 1 e every day every day tablet by oral by oral every day route. route. by oral route. hydroxyzine hydroxyzine No 1 TID hydroxyzin [facility] HCl 25 mg HCl 25 mg e HCl 25 F amily tablet Take tablet Take mg tablet Practic 1 tablet 3 1 tablet 3 Take 1 e times a day times a day tablet 3 by oral by oral times a route. route. day by oral route. Levemir Levemir No Levemir Villag e FlexTouch FlexTouch FlexTouch [facility] U-100 U-100 U-100 Practic Insulin 100 Insulin 100 Insulin e unit/mL (3 unit/mL (3 100 mL) mL) unit/mL (3 subcutaneou subcutaneou mL) s pen s pen subcutaneo Inject by Inject by us pen subcutaneou subcutaneou Inject by s route. s route. subcutaneo us route. levothyroxi levothyroxi No 1capsul Q1D levothyrox [facility] ne 50 mcg ne 50 mcg [...] route. metformin metformin No 1 BID metformin [facility] 1,000 mg 1,000 mg 1,000 mg Fam sheree tablet Take tablet Take tablet Practic 1 tablet 1 tablet Take 1 e twice a day twice a day tablet by oral by oral twice a route. route. day by oral route. Immunizations Ordered Immunization Filled Immunization Date Status Commen ts Source Name Name influenza, influenza, 2000-01-23 Completed [facility] injectable, injectable, 00:00:00 Practice quadrivalent quadrivalent Procedures This patient has no known procedures. Plan of Care Planned Activity Planned Date Details Comments Source Instructions [facility] Encounters Start End Encounter Admission Attending Care Care Encounter Source Date/Time Date/Time Type Type Clinicians Facility Department ID 2021-06-25 Outpatient STLMLC ST[facility]C [id number] Common 13:15:04 [id number] [facility] 2020-07-30 2020-07-30 Outpatient Miller_S_AH VFP VFP [phone] [facility] 05:12:00 05:12:00 [id number] [facility] Pract[facility] 2020-03-29 2020-03-29 Outpatient Nimesh-Mbayo VFP VFP [phone] [facility] 03:07:00 03:07:00 _A_AH [id number] Family Practic e 2020-03-29 2020-03-29 Outpatient Nimesh-Mbayo VFP VFP [phone] [facility] 03:07:00 03:07:00 _A_AH [id number] Family Practic e 2020-03-18 2020-03-18 Outpatient Nimesh-Mbayo VFP VFP [phone] [facility] 08:24:00 08:24:00 _A_AH [id number] Family Practic e 2020-03-14 2020-03-14 Outpatient Nimesh-Mbayo VFP VFP [phone] [facility] 03:20:00 03:20:00 _A_AH [id number] Family Practic e 2020-03-14 2020-03-14 Mee VFP [place] - [id number] [facility] 00:00:00 00:00:[address] [facility] [facility] José wilcox [employer]: Medical - Practi c [address] [email or web address] [facility], [address], [place] [address] , Ph. 2019-04-12 2019-04-12 Outpatient Nimesh-Mbayo VFP VFP [phone] [facility] 07:19:00 07:19:00 _A_AH [id number] Family Practic e 2019-04-12 2019-04-12 Outpatient Nimesh-Mbayo VFP VFP [phone] [facility] 07:19:00 07:19:00 _[facility] [id number] Family Practic e Results This patient has no known results.
[2021-11-24 01:36] LABS: Absolute Lymphocytes (CBC) 1.8 K/uL (0.7-4.9); Hematocrit 45.2 % (39.6-49.0); Lymphocytes % 26.3 % (15.3-44.8); MCV 92.2 fL (80-100); MPV 10.7 fL (7.6-11.3)
[2021-11-24 01:51] LABS: Potassium 4.2 mmol/L (3.5-5.1); Troponin High Sensitivity 55.9 pg/mL (<58.9)
[2021-11-24] MEDS ORDERED: FUROSEMIDE 40 MG/4 ML VIAL ONE (03:21)
--- NOTE | 2021-11-24 04:39 | EDPHYS ---
Physician Documentation [facility] Name: Kevin Duffy Age: 86 yrs Sex: Male : 1935 Arrival Date: 11/24/2021 Time: 00:43 Bed 5 Private MD: ED Physician Antwan Lu HPI: 11/24 04:41 This 86 yrs old Male presents to ER via Ambulatory with complaints of Breathing kdr Difficulty. 04:42 Patient complains of shortness of breath that began this evening. He describes the kdr shortness of breath to a new ubwv-qfc-[id number] sleeping aid that he has been taking (Relaxium). The patient had taken a dose last evening and then again this evening. He stated that he had good sleep the first evening but the last evening he had very poor sleep. He again is describing this poor sleep/stating to this particular medication. He has no other focal or global complaint. Patient acutely ill or needing emergent intervention of any sort at this moment. Onset: The symptoms/episode began/occurred gradually, last night. Severity of symptoms: At their worst the symptoms were mild moderate just prior to arrival, in the emergency department the symptoms are unchanged. The patient has not experienced similar symptoms in the past. The patient has not recently seen a physician. Historical: - Allergies: 00:55 No Known Allergies; as6 - PMHx: 00:55 Diabetes - NIDDM; Hypertension; Hypothyroidism; as6 - Immunization history:: Client reports receiving the 2nd dose of the Covid vaccine. - Social history:: Smoking status: Patient denies any tobacco usage or history of. ROS: 04:42 Constitutional: Negative for fever, chills, and weight loss, Eyes: Negative for injury, kdr pain, redness, and discharge, Neck: Negative for injury, pain, and swelling, Cardiovascular: Negative for chest pain, palpitations, and edema, Abdomen/GI: Negative for abdominal pain, nausea, vomiting, diarrhea, and constipation, Back: Negative for injury and pain, : Negative for injury, bleeding, discharge, and swelling, MS/Extremity: Negative for injury and deformity, Skin: Negative for injury, rash, and discoloration, Neuro: Negative for headache, weakness, numbness, tingling, and seizure activity. Psych: Negative for depression, anxiety, suicide ideation, homicidal ideation, and hallucinations, Allergy/Immunology: Negative for hives, rash, and allergies, Endocrine: Negative for neck swelling, polydipsia, polyuria, polyphagia, and marked weight changes, Hematologic/Lymphatic: Negative for swollen nodes, abnormal bleeding, and unusual bruising. 04:42 Respiratory: Positive for cough, with no reported sputum, dyspnea on exertion, shortness of breath, Negative for hemoptysis, orthopnea, pleurisy, sputum production, wheezing. Exam: 04:42 Constitutional: This is a well developed, well nourished patient who is awake, alert, kdr and in no acute distress. Head/Face: Normocephalic, atraumatic. Eyes: Pupils equal round and reactive to light, extra-ocular motions intact. Lids and lashes normal. Conjunctiva and sclera are non-icteric and not injected. Cornea within normal limits. Periorbital areas with no swelling, redness, or edema. Neck: Trachea midline, no thyromegaly or masses palpated, and no cervical lymphadenopathy. Supple, full range of motion without nuchal rigidity, or vertebral point tenderness. No Meningismus. Chest/axilla: Normal chest wall appearance and motion. Nontender with no deformity. No lesions are appreciated. Cardiovascular: Regular rate and rhythm with a normal S1 and S2. No gallops, murmurs, or rubs. Normal PMI, no JVD. No pulse deficits. Respiratory: Lungs have equal breath sounds bilaterally, clear to auscultation and percussion. No rales, rhonchi or wheezes noted. No increased work of breathing, no retractions or nasal flaring. Abdomen/GI: Soft, non-tender, with normal bowel sounds. No distension or tympany. No guarding or rebound. No evidence of tenderness throughout. Back: No spinal tenderness. No costovertebral tenderness. Full range of motion. Skin: Warm, dry with normal turgor. Normal color with no rashes, no lesions, and no evidence of cellulitis. MS/ Extremity: Pulses equal, no cyanosis. Neurovascular intact. Full, normal range of motion. Neuro: Awake and alert, GCS 15, oriented to person, place, time, and situation. Cranial nerves II-XII grossly intact. Motor strength 5/5 in all extremities. Sensory grossly intact. Cerebellar exam normal. Normal gait. Psych: Awake, alert, with orientation to person, place and time. Behavior, mood, and affect are within normal limits. Vital Signs: 00:52 BP 164 / 96; Pulse 108; Resp 17 S; Temp 98.8(TE); Pulse Ox 94% on R/A; Weight 104.33 kg as6 (R); Height 6 ft. 3 in. (190.50 cm) (R); Pain 0/10; 02:00 BP 132 / 86; Pulse 107; Resp 17 S; Pulse Ox 93% on R/A; aa9 02:30 BP 145 / 89; Pulse 103; Resp 20 S; Pulse Ox 93% on R/A; aa9 02:45 BP 146 / 90; Pulse 101; Resp 17 S; Pulse Ox 93% on R/A; aa9 03:00 BP 139 / 81; Pulse 100; Resp 19 S; Pulse Ox 92% on R/A; aa9 04:38 BP 152 / 97; Pulse 108; Resp 18; Pulse Ox 95% on R/A; jb4 00:52 Body Mass Index 28.75 (104.33 kg, 190.50 cm) as6 MDM: 04:38 Patient medically screened. kdr 04:42 Data reviewed: vital signs, nurses notes, lab test result(s), radiologic studies. kdr Counseling: I had a detailed discussion with the patient and/or guardian regarding: the historical points, exam findings, and any diagnostic results supporting the discharge/admit diagnosis, lab results, radiology results, the need for outpatient follow up. 11/24 00:48 Order name: Basic Metabolic Panel kdr 11/24 00:48 Order name: CBC with Diff kdr 11/24 00:48 Order name: Troponin HS kdr 11/24 01:41 Order name: CBC with Automated Diff; Complete Time: 02:16 EDMS 11/24 01:44 Order name: NT PRO-BNP kdr 11/24 01:52 Order name: Basic Metabolic Panel; Complete Time: 03:11 EDMS 11/24 00:48 Order name: XRAY Chest (1 view) kdr 11/24 00:48 Order name: EKG; Complete Time: 00:49 kdr 11/24 00:48 Order name: Cardiac monitoring; Complete Time: 00:56 kdr 11/24 00:48 Order name: EKG - Nurse/Tech; Complete Time: 01:15 kdr 10/03 00:48 Order name: IV Saline Lock; Complete Time: 01:32 kdr 11/24 01:52 Order name: Troponin High Sensitivity; Complete Time: 03:11 EDND 11/24 02:17 Order name: NT PRO-BNP; Complete Time: 03:11 EDND 11/24 00:48 Order name: Labs collected and sent; Complete Time: 01:32 kdr 11/24 00:48 Order name: O2 Per Protocol; Complete Time: 00:56 kdr 11/24 00:48 Order name: O2 Sat Monitoring; Complete Time: 00:56 kdr Administered Medications: 03:27 Drug: Lasix (furosemide) 40 mg Route: IVP; Site: right antecubital; jb4 04:51 Follow up: Response: No adverse reaction jb4 Disposition Summary: 11/24/21 04:38 Discharge Ordered Location: Home kdr Problem: new kdr Symptoms: have improved kdr Condition: Stable kdr Diagnosis - Congestive heart failure kdr Followup: kdr - With: Private Physician - When: 2 - 3 days - Reason: If symptoms return, Further diagnostic work-up, Recheck today's complaints, Continuance of care, Re-evaluation by your physician Discharge Instructions: - Discharge Summary Sheet kdr - Preventing Heart Failure kdr - Heart Failure Exacerbation kdr - Heart Failure and Exercise kdr - Heart Failure Eating Plan kdr Forms: - Medication Reconciliation Form kdr - Thank You Letter kdr Prescriptions: - Lasix 40 mg Oral Tablet - take 1 tablet by ORAL route once daily for 30 days; 10 tablet; Refills: 0, kdr Product Selection Permitted - Potassium Chloride 20 meq Oral Packet - take 1 packet by ORAL route once daily 1 packet in 6 (six) ounces of water or kdr juice; Take after meal; 30 packet; Refills: 0, Product Selection Permitted Signatures: Dispatcher [employer] [facility] Antwan Lu MD MD kdr Bryson, James, RN RN jb4 Yunier Arguello RN RN as6
--- NOTE | 2021-11-24 04:39 | ER ---
Nurse's Notes [facility] Name: Kevin Duffy Age: 86 yrs Sex: Male : 1935 Arrival Date: 11/24/2021 Time: 00:43 Bed 5 Private MD: Diagnosis: Congestive heart failure Presentation: 11/24 00:52 Chief complaint: Patient states: "I took a new sleeping medicine and it made me short as6 of breath". Coronavirus screen: At this time, the client does not indicate any symptoms associated with coronavirus-19. Ebola Screen: No symptoms or risks identified at this time. Initial Sepsis Screen: Does the patient meet any 2 criteria? HR > 90 bpm. Does the patient have a suspected source of infection? No. Patient's initial sepsis screen is negative. Risk Assessment: Do you want to hurt yourself or someone else? Patient reports no desire to harm self or others. Onset of symptoms was November 24, 2021. 00:52 Method Of Arrival: Ambulatory as6 00:52 Acuity: XIMENA 3 as6 Triage Assessment: 03:32 General: Appears uncomfortable, obese, Behavior is calm, cooperative. Cardiovascular: aa9 Patient's skin is warm and dry. Respiratory: Reports shortness of breath at rest cough that is productive, Onset: The symptoms/episode began/occurred suddenly, the patient has mild shortness of breath. GI: Abdomen is round. Historical: - Allergies: 00:55 No Known Allergies; as6 - PMHx: 00:55 Diabetes - NIDDM; Hypertension; Hypothyroidism; as6 - Immunization history:: Client reports receiving the 2nd dose of the Covid vaccine. - Social history:: Smoking status: Patient denies any tobacco usage or history of. Screenin:32 Abuse screen: Denies threats or abuse. Denies injuries from another. Nutritional aa9 screening: No deficits noted. Tuberculosis screening: No symptoms or risk factors identified. Fall Risk None identified. Assessment: 03:31 General: Appears uncomfortable, Behavior is calm, cooperative, appropriate for age. aa9 Pain: Denies pain. Neuro: Level of Consciousness is awake, alert, obeys commands, Oriented to person, place, time, situation. Cardiovascular: Patient's skin is warm and dry. Rhythm is sinus tachycardia with unifocal PVCs. Respiratory: Airway is patent Respiratory effort is even, unlabored. 04:38 Reassessment: Patient appears in no apparent distress at this time. Patient and/or jb4 family updated on plan of care and expected duration. Pain level reassessed. Patient is alert, oriented x 3, equal unlabored respirations, skin warm/dry/pink. Vital Signs: 00:52 BP 164 / 96; Pulse 108; Resp 17 S; Temp 98.8(TE); Pulse Ox 94% on R/A; Weight 104.33 kg as6 (R); Height 6 ft. 3 in. (190.50 cm) (R); Pain 0/10; 02:00 BP 132 / 86; Pulse 107; Resp 17 S; Pulse Ox 93% on R/A; aa9 02:30 BP 145 / 89; Pulse 103; Resp 20 S; Pulse Ox 93% on R/A; aa9 02:45 BP 146 / 90; Pulse 101; Resp 17 S; Pulse Ox 93% on R/A; aa9 03:00 BP 139 / 81; Pulse 100; Resp 19 S; Pulse Ox 92% on R/A; aa9 04:38 BP 152 / 97; Pulse 108; Resp 18; Pulse Ox 95% on R/A; jb4 00:52 Body Mass Index 28.75 (104.33 kg, 190.50 cm) as6 ED Course: 00:43 Patient arrived in ED. bp1 00:48 Antwan Lu MD is Attending Physician. kdr 00:55 Triage completed. as6 00:56 Arm band placed on. as6 01:26 Initial lab(s) drawn, by me, sent to lab. Inserted saline lock: 20 gauge in right tw5 antecubital area, using aseptic technique. Blood collected. 01:40 Basic Metabolic Panel Sent. vc1 01:40 CBC with Diff Sent. vc1 01:40 Troponin HS Sent. vc1 02:13 NT PRO-BNP Sent. tw5 04:51 Patient has correct armband on for positive identification. Bed in low position. Call jb4 light in reach. Side rails up X 1. Client placed on continuous cardiac and pulse oximetry monitoring. NIBP monitoring applied. 04:51 No provider procedures requiring assistance completed. IV discontinued, intact, jb4 bleeding controlled, No redness/swelling at site. Pressure dressing applied. Administered Medications: 03:27 Drug: Lasix (furosemide) 40 mg Route: IVP; Site: right antecubital; jb4 04:51 Follow up: Response: No adverse reaction jb4 Medication: 04:51 VIS not applicable for this client. jb4 Output: 04:40 Urine: 1000ml (Voided); Total: 1000ml. jb4 Outcome: 04:38 Discharge ordered by . kdr 04:51 Discharged to home ambulatory. jb4 04:51 Condition: stable 04:51 Discharge instructions given to patient, Instructed on discharge instructions, follow up and referral plans. medication usage, Demonstrated understanding of instructions, follow-up care, medications, Prescriptions given X 2. 04:52 Patient left the ED. jb4 Signatures: Antwan Lu MD MD kdr Bryson, James, RN RN jb4 Morenita Pierce Tiffany tw5 Yunier Arguello RN RN as6 Iveth Casper RN RN vc1 Pat Hess, RN RN aa9
[2021-11-24 05:16] VITALS: TEMP 98.8
[2021-11-24 05:21] VITALS: BP 152/97; O2SAT 95
--- NOTE | 2021-11-24 12:31 | RAD REPORT ---
EXAM DESCRIPTION: Chest Single View 11/24/2021 1:41 AM CDT CLINICAL HISTORY: 86 years, Male, CHEST PAIN COMPARISON: None. FINDINGS: Single view of the chest was obtained portable. No prior films are available for compariso n. The cardiomediastinal silhouette demonstrate to be unremarkable. The heart is not enlarged. The th oracic aorta is tortuous with minimal intimal calcification.. The pulmonary vasculature is normal dis tribution. Costophrenic angles are sharp. Mild elevation of the right hemidiaphragm. No areas of cons olidation or masses are seen. External EKG leads within the qapza-ty-vyhm limits diagnosis. The res t of the soft tissue and bony structures demonstrate to be unremarkable. IMPRESSION: No acute cardiopulmonary disease seen. Electronically signed by: Bhaskar Cortez MD 11/24/2021 1:42 AM CDT Due to temporary technical issues with the PACS/Fluency reporting system, reports are being signed by the in house radiologists without review as a courtesy to insure prompt reporting. The interpreting radiologist is fully responsible for the content of the report.
--- NOTE | 2021-11-25 06:26 | EKG ---
Test Date: 2021-11-24 Test Time: 01:17:29 Tool Marker: MEASUREMENT RESULTS: Intervals: Rate: 105 IN: 188 QRSD: 116 QT: 360 QTc: 475 [facility]: P: 69 IN: 188 QRS: -59 T: 83 INTERPRETIVE STATEMENTS: Sinus tachycardia with occasional and consecutive premature ventricular complexes Left anterior fascicular block Septal infarct, age undetermined Abnormal ECG Compared to ECG 10/02/2020 09:24:31 Ventricular premature complex(es) now present Myocardial infarct finding now present Sinus rhythm no longer present Atrial premature complex(es) no longer present Aberrant conduction of supraventricular beat(s) no longer present Electronically Signed On 11-25-21 06:25:10 CDT by Duncan Williamson
== END 2021-11-24 04:52 | disposition home or self-care (01) ==
LOC: ER 00:39
DX: I50.9 Heart failure, unspecified (principal); E11.9 Type 2 diabetes mellitus without complications; I10 Essential (primary) hypertension; E03.9 Hypothyroidism, unspecified
CPT/HCPCS: 93005; 85025; 80048; 36415; 84484; 83880; 71045; 96374; 99284; J1940

== ENCOUNTER 2022-01-19 13:34 | Inpatient (IN) | payer OTHER ==
--- OUTSIDE RECORDS SUMMARY | 2022-01-19 13:57 | XMS REPORT | Continuity of Care Document ---
:1935 Author Organization [facility] t Address [address] [place] [address] Care Team Providers Name Role Phone Miller_S_AH Attending Clinician Unavailable Nimesh-Rosaayo_A_AH Attending Clinician Unavailable Miller_S_AH Admitting Clinician Unavailable Nimesh-Mbayo_A_AH Admitting Clinician Unavailable Payers Payer Name Policy Type Policy Number Effective Date Expiration Date S raymundo [facility] [place] - [id number] 1976 [employer] 00:00:00 (MEDICARE REPLACEMENT/ADVANT AGE - HMO) Problems Condition Condition Condition Status Onset Resolution Last Treating Co mments Source Name Details Category Date Date Treatment Clinician Date Type 2 Type 2 Problem Active [facility] diabetes Diabetes 1-24 Family mellitus Mellitus [...] Name atorvastati atorvastati No 1 Q1D atorvastat [facility] n 40 mg n 40 mg in 40 mg Famil y tablet Take tablet Take tablet Practic 1 tablet 1 tablet Take 1 e every day every day tablet by oral by oral every day route. route. by oral route. gabapentin gabapentin No 1capsul TID gabapentin [facility] 100 mg 100 mg e(s) 100 mg Family capsule capsule capsule Practi c Take 1 Take 1 Take 1 e capsule 3 capsule 3 capsule 3 times a day times a day times a by oral by oral day by route. route. oral route. glipizide glipizide No 1 Q1D glipizide [facility] 10 mg 10 mg 10 mg Family tablet Take tablet Take tablet Practic 1 tablet 1 tablet Take 1 e every day every day tablet by oral by oral every day route. route. by oral route. hydroxyzine hydroxyzine No 1 TID hydroxyzin [facility] HCl 25 mg HCl 25 mg e HCl 25 F amily tablet Take tablet Take mg tablet Practic 1 tablet 3 1 tablet 3 Take 1 e times a day times a day tablet 3 by oral by oral times a route. route. day by oral route. Levemir Levemir No Levemir Villag e FlexTouch FlexTouch FlexTouch [facility] U-100 U-100 U-100 Practic Insulin 100 Insulin 100 Insulin e unit/mL (3 unit/mL (3 100 mL) mL) unit/mL (3 subcutaneou subcutaneou mL) s pen s pen subcutaneo Inject by Inject by us pen subcutaneou subcutaneou Inject by s route. s route. subcutaneo us route. levothyroxi levothyroxi No 1capsul Q1D levothyrox [facility] ne 50 mcg ne 50 mcg [...] route. metformin metformin No 1 BID metformin [facility] 1,000 mg 1,000 mg 1,000 mg Fam sheree tablet Take tablet Take tablet Practic 1 tablet 1 tablet Take 1 e twice a day twice a day tablet by oral by oral twice a route. route. day by oral route. Immunizations Ordered Immunization Filled Immunization Date Status Commen Source Name Name influenza, influenza, 2000-01-[address] [facility] injectable, injectable, 00:00:00 Practice quadrivalent quadrivalent Procedures This patient has no known procedures. Plan of Care Planned Activity Planned Date Details Comments Source Instructions [facility] Encounters Start End Encounter Admission Attending Care Care Encounter Source Date/Time Date/Time Type Type Clinicians Facility Department ID 2021-06-25 [facility] [id number] [facility] 13:15:04 [id number] 2020-07-30 2020-07-30 Outpatient Miller_S_AH VFP VFP [phone] [facility] 05:12:00 05:12:00 [id number] [facility] 2020-03-29 2020-03-29 Outpatient Nimesh-Mbayo VFP VFP [phone] [facility] 03:07:00 03:07:00 _A_AH [id number] Family Practic e 2020-03-29 2020-03-29 Outpatient Nimesh-Mbayo VFP VFP [phone] [facility] 03:07:00 03:07:00 _A_AH [id number] Family Practic e 2020-03-18 2020-03-18 Outpatient Nimesh-Mbayo VFP VFP [phone] [facility] 08:24:00 08:24:00 _A_AH [id number] Family Practic e 2020-03-14 2020-03-14 Outpatient Nimesh-Mbayo VFP VFP [phone] [facility] 03:20:00 03:20:00 _A_AH [id number] Family Practic e 2020-03-14 2020-03-14 Mee VFP [place] - [id number] [facility] 00:00:00 00:00:00 [facility] José wilcox DIRECTOR GEOPHYSICAL LABORATORY: Medical - Practi c [email or web address] [facility], [address] [address], [place] [address] , Ph. 2019-04-12 2019-04-12 Outpatient Nimesh-Mbayo VFP VFP [phone] [facility] 07:19:00 07:19:00 _A_AH [id number] Family Practic e 2019-04-12 2019-04-12 Outpatient Nimesh-Mbayo VFP VFP [phone] [facility] 07:19:00 07:19:00 _A_ [id number] Family Practic e Results This patient has no known results.
--- NOTE | 2022-01-19 15:51 | RAD REPORT ---
EXAM DESCRIPTION: RAD - Chest Single View - 01/19/2022 3:33 pm CLINICAL HISTORY: SOB COMPARISON: Chest Single View dated 11/24/2021; Chest Pa And Lat (2 Views) dated 07/18/2020; Chest Sin gle View dated 07/17/2020; Chest Pa And Lat (2 Views) dated 07/04/2020; Chest Angio dated 09/06/2020 FINDINGS: Lines: None. Lungs: No evidence of edema or pneumonia. Pleural: No significant pleural effusions or pneumothorax. Cardiac: The heart size is within normal limits. Mediastinum: Within normal limits. Bones: No acute fractures. Other: None IMPRESSION: No acute cardiopulmonary disease.
[2022-01-19 16:27] LABS: Absolute Lymphocytes (CBC) 1.8 K/uL (0.7-4.9); Hematocrit 45.8 % (39.6-49.0); Lymphocytes % 23.9 % (15.3-44.8); MPV 10.8 fL (7.6-11.3); RBC Red Blood Cell Count 4.87 M/uL (4.33-5.43)
[2022-01-19 16:51] LABS: Potassium 4.6 mmol/L (3.5-5.1)
[2022-01-19 16:54] LABS: Troponin High Sensitivity 74.1 pg/mL (<58.9)
[2022-01-19 18:08] LABS: SARS-CoV-2 Antigen Rapid Res Negative (Negative)
--- NOTE | 2022-01-19 18:15 | EDPHYS ---
Physician Documentation [facility] Name: Kevin Duffy Age: 86 yrs Sex: Male : 1935 Arrival Date: 01/19/2022 Time: 13:38 Bed 11 Private MD: Herb Sloan E ED Physician Bliane Garcia HPI: 01/19 18:18 This 86 yrs old Male presents to ER via Ambulatory with complaints of Breathing ms3 Difficulty. 18:18 The patient has shortness of breath that woke him/her from sleep. Onset: The ms3 symptoms/episode began/occurred 1 month(s) ago. Duration: The symptoms are continuous. The patient's shortness of breath is aggravated by supine position, is alleviated by sitting up. Associated signs and symptoms: The patient has no apparent associated signs or symptoms. Severity of symptoms: At their worst the symptoms were moderate in the emergency department the symptoms are unchanged. Historical: - Allergies: 15:10 No Known Allergies; ss - PMHx: 15:10 Diabetes - NIDDM; Hypertension; Hypothyroidism; ss - Immunization history:: Client reports receiving the 2nd dose of the Covid vaccine. - Social history:: Smoking status: Patient denies any tobacco usage or history of. ROS: 18:18 Constitutional: Negative for fever, and chills. Neck: Negative for injury, pain, and ms3 swelling, Cardiovascular: Negative for chest pain, and palpitations. Abdomen/GI: Negative for abdominal pain, nausea, vomiting, diarrhea, and constipation, MS/Extremity: Negative for injury and deformity. 18:18 Respiratory: Positive for shortness of breath. 18:18 All other systems are negative. Exam: 16:43 ECG was reviewed by the Attending Physician. ms3 18:18 Constitutional: This is a well developed, well nourished patient who is awake, alert, ms3 and in no acute distress. Head/Face: Normocephalic, atraumatic. Neck: Trachea midline, no cervical lymphadenopathy. Supple, full range of motion without nuchal rigidity, or vertebral point tenderness. No Meningismus. Chest/axilla: Normal chest wall appearance and motion. Nontender with no deformity. Cardiovascular: Regular rate and rhythm with a normal S1 and S2. No gallops, murmurs, or rubs. Normal PMI, no JVD. No pulse deficits. Abdomen/GI: Soft, non-tender, with normal bowel sounds. No distension or tympany. No guarding or rebound. No evidence of tenderness throughout. Back: No spinal tenderness. No costovertebral tenderness. Full range of motion. Skin: Warm, dry with normal turgor. Normal color with no rashes, no lesions, and no evidence of cellulitis. MS/ Extremity: Pulses equal, no cyanosis. Neurovascular intact. Full, normal range of motion. Neuro: Awake and alert, GCS 15, oriented to person, place, time, and situation. Cranial nerves II-XII grossly intact. Motor strength 5/5 in all extremities. Sensory grossly intact. Cerebellar exam normal. Normal gait. 18:18 Respiratory: the patient does not display signs of respiratory distress, Respirations: normal, Breath sounds: rales, that are mild, are located in both bases. Vital Signs: 15:08 BP 156 / 90; Pulse 102; Resp 18; Temp 98.6(TE); Pulse Ox 100% on R/A; Weight 100.7 kg; ss Height 6 ft. 3 in. (190.50 cm); Pain 0/10; 17:19 BP 144 / 78; Pulse 98; Resp 20; Pulse Ox 96% on R/A; em6 18:16 BP 126 / 74; Pulse 93; Resp 20; Pulse Ox 95% on R/A; em6 19:20 BP 135 / 69; Pulse 90; Resp 18; Pulse Ox 95% on R/A; em6 15:08 Body Mass Index 27.75 (100.70 kg, 190.50 cm) ss MDM: 15:49 Patient medically screened. ms3 18:18 Differential diagnosis: CHF exacerbation, Myocardial Infarction pneumonia. Data ms3 reviewed: vital signs, nurses notes, lab test result(s), EKG, radiologic studies, and as a result, I will admit patient. Counseling: I had a detailed discussion with the patient and/or guardian regarding: the historical points, exam findings, and any diagnostic results supporting the discharge/admit diagnosis, lab results, radiology results, the need for further work-up and treatment in the hospital. ED course: Discussed transfer to [facility] is at capacity at this time. Patient declines. Discussed case with Baldev Jauregui, nurse practitioner, and he accepts patient on behalf of Dr. Greene.. 01/19 15:32 Order name: Basic Metabolic Panel; Complete Time: 17:13 ms3 01/19 15:32 Order name: CBC with Diff; Complete Time: 17:13 ms3 01/19 15:32 Order name: Troponin HS; Complete Time: 17:13 ms3 01/19 15:51 Order name: NT PRO-BNP; Complete Time: 18:10 ms3 01/19 16:23 Order name: D-Dimer; Complete Time: 17:13 ms3 01/19 16:59 Order name: SARS RAPID; Complete Time: 18:10 em6 01/19 15:18 Order name: XRAY Chest (1 view); Complete Time: 16:17 ss 01/19 15:32 Order name: EKG; Complete Time: 15:32 ms3 01/19 15:32 Order name: Cardiac monitoring; Complete Time: 17:18 ms3 01/19 15:32 Order name: EKG - Nurse/Tech; Complete Time: 16:26 ms3 01/19 15:32 Order name: IV Saline Lock; Complete Time: 16:26 ms3 01/19 15:32 Order name: Labs collected and sent; Complete Time: 16:26 ms3 01/19 15:32 Order name: O2 Per Protocol; Complete Time: 16:26 ms3 01/19 15:32 Order name: O2 Sat Monitoring; Complete Time: 16:26 ms3 EC:43 Rate is 82 beats/min. Rhythm is regular. Left axis deviation noted. CO interval is ms3 normal. Clinical impression: NSR w/ Non-specific ST/T Changes. Interpreted by me. Reviewed by me. Administered Medications: No medications were administered Disposition Summary: 01/19/22 18:15 Hospitalization Ordered Hospitalization Status: Inpatient Admission ms3 Condition: Stable ms3 Problem: new ms3 Symptoms: are unchanged ms3 Bed/Room Type: Standard ms3 Location: Telemetry/MedSurg (Inpatient)(01/19/22 18:15) ms3 Provider: Braydon Greene(01/19/22 19:09) ms3 Room Assignment: [facility](01/19/22 19:33) cg Diagnosis - Heart failure, unspecified ms3 - Subsequent non-ST elevation (NSTEMI) myocardial infarction ms3 - Essential (primary) hypertension ms3 Forms: - Medication Reconciliation Form ms3 - SBAR form ms3 Signatures: Dispatcher [employer] EDMS Jaclyn Kim RN RN ss Garcia, Cindy, RN RN Blaine Beverly DO DO ms3 Camille Bass, RN RN em6 Corrections: (The following items were deleted from the chart) 18:15 18:15 Telemetry/MedSurg (observation) ms3 ms3 18:15 18:15 ms3 ms3 18:24 18:18 Constitutional: This is a well developed, well nourished patient who is awake, ms3 alert, and in no acute distress. Head/Face: Normocephalic, atraumatic. Neck: Trachea midline, no cervical lymphadenopathy. Supple, full range of motion without nuchal rigidity, or vertebral point tenderness. No Meningismus. Chest/axilla: Normal chest wall appearance and motion. Nontender with no deformity. Cardiovascular: Regular rate and rhythm with a normal S1 and S2. No gallops, murmurs, or rubs. Normal PMI, no JVD. No pulse deficits. ms3 19:09 18:15 Zee Vela ms3 ms3 19:33 18:15 ms3 cg
--- NOTE | 2022-01-19 18:15 | ER ---
Nurse's Notes [facility] Name: Kevin Duffy Age: 86 yrs Sex: Male : 1935 Arrival Date: 01/19/2022 Time: 13:38 Bed 11 Private MD: Herb Sloan E Diagnosis: Heart failure, unspecified;Subsequent non-ST elevation (NSTEMI) myocardial infarction;Essential (primary) hypertension Presentation: 01/19 15:08 Chief complaint: Patient states: shortness of breath that began after being diagnosed ss with pneumonia a month ago. Denies fever. Coronavirus screen: Client denies travel out of the [place] in the last 14 days. Ebola Screen: Patient denies exposure to infectious person. Patient denies travel to an Ebola-affected area in the 21 days before illness onset. Initial Sepsis Screen: Does the patient meet any 2 criteria? No. Patient's initial sepsis screen is negative. Does the patient have a suspected source of infection? No. Patient's initial sepsis screen is negative. Risk Assessment: Do you want to hurt yourself or someone else? Patient reports no desire to harm self or others. Onset of symptoms was November 2021. 15:08 Method Of Arrival: Ambulatory ss 15:08 Acuity: XIMENA 3 ss Triage Assessment: 17:17 Respiratory: Reports shortness of breath at rest. em6 17:17 Respiratory: Onset: The symptoms/episode began/occurred suddenly, the patient has mild em6 shortness of breath. 17:17 General: Appears in no apparent distress. Behavior is cooperative. em6 Historical: - Allergies: 15:10 No Known Allergies; ss - PMHx: 15:10 Diabetes - NIDDM; Hypertension; Hypothyroidism; ss - Immunization history:: Client reports receiving the 2nd dose of the Covid vaccine. - Social history:: Smoking status: Patient denies any tobacco usage or history of. Screenin:16 Abuse screen: Denies threats or abuse. Nutritional screening: No deficits noted. em6 Tuberculosis screening: No symptoms or risk factors identified. 17:18 Fall Risk IV access (20 points). Total Parrish Fall Scale indicates No Risk (0-24 pts). em6 Assessment: 17:15 General: Appears in no apparent distress. Behavior is cooperative. Pain: Denies pain. em6 Neuro: Level of Consciousness is awake, alert, obeys commands, Oriented to person, place, time, situation. Cardiovascular: Patient's skin is warm and dry. Rhythm is. Respiratory: Reports shortness of breath at rest Airway is patent Respiratory effort is even, unlabored, Breath sounds are clear bilaterally. GI: No signs and/or symptoms were reported involving the gastrointestinal system. GI: No signs and/or symptoms were reported involving the gastrointestinal system. : No signs and/or symptoms were reported regarding the genitourinary system. EENT: No signs and/or symptoms were reported regarding the EENT system. Derm: No signs and/or symptoms reported regarding the dermatologic system. Musculoskeletal: Circulation, motion, and sensation intact. Range of motion: intact in all extremities. 18:14 Reassessment: Patient appears in no apparent distress at this time. No changes from em6 previously documented assessment. Patient and/or family updated on plan of care and expected duration. Pain level reassessed. Patient is alert, oriented x 3, equal unlabored respirations, skin warm/dry/pink. 19:15 Reassessment: Patient appears in no apparent distress at this time. No changes from em6 previously documented assessment. Patient and/or family updated on plan of care and expected duration. Pain level reassessed. Patient is alert, oriented x 3, equal unlabored respirations, skin warm/dry/pink. Vital Signs: 15:08 BP 156 / 90; Pulse 102; Resp 18; Temp 98.6(TE); Pulse Ox 100% on R/A; Weight 100.7 kg; Height 6 ft. 3 in. (190.50 cm); Pain 0/10; 17:19 BP 144 / 78; Pulse 98; Resp 20; Pulse Ox 96% on R/A; em6 18:16 BP 126 / 74; Pulse 93; Resp 20; Pulse Ox 95% on R/A; em6 19:20 BP 135 / 69; Pulse 90; Resp 18; Pulse Ox 95% on R/A; em6 15:08 Body Mass Index 27.75 (100.70 kg, 190.50 cm) ED Course: 13:38 Patient arrived in ED. mr 13:38 Herb Sloan MD is Private Physician. mr 14:19 Blaine Garcia DO is Attending Physician. ms3 15:10 Triage completed. ss 15:10 Arm band placed on right wrist. ss 15:35 XRAY Chest (1 view) In Process Unspecified. EDMS 16:14 Camille Bass, RN is Primary Nurse. em6 17:09 Camille Bass, [facility] is Primary Nurse. em6 17:17 Bed in low position. Call light in reach. Side rails up X2. nurse monitoring on. Pulse em6 ox on. NIBP on. Warm blanket given. 17:40 NT PRO-BNP Sent. em6 17:46 SARS RAPID Sent. em6 18:12 Zee Vela MD is Hospitalizing Provider. ms3 19:09 Hospitalizing Provider role handed off by Zee Vela MD ms3 19:09 Braydon Greene is Hospitalizing Provider. ms3 20:14 No provider procedures requiring assistance completed. em6 20:17 Patient admitted, IV remains in place. em6 Administered Medications: No medications were administered Medication: 20:15 VIS not applicable for this client. em6 Outcome: 18:15 Decision to Hospitalize by Provider. ms3 20:12 Patient left the ED. bb 20:15 Admitted to Tele accompanied by nurse, room 431. em6 20:15 Condition: stable 20:15 Instructed on the need for admit, Demonstrated understanding of instructions. Signatures: Dispatcher [employer] EDMO NewYashira Fela Zelaya, RN Jaclyn Gold, [facility] MCNALLY Blaine Garcia, DO DO ms3 Camille Bass, RN RN em6 Corrections: (The following items were deleted from the chart) 17:18 17:15 Respiratory: Airway is patent Respiratory effort is even, unlabored, Breath em6 sounds are clear bilaterally. em6
--- NOTE | 2022-01-19 19:28 | P.HP ---
Certification for Inpatient Patient admitted to: Observation With expected LOS: <2 Midnights Patient will require the following post-hospital care: None Practitioner: I am a practitioner with admitting privileges, knowledge of patient current condition, hospital course, and medical plan of care. Services: Services provided to patient in accordance with Admission requirements found in Title 42 Section 412.3 of the Code of Federal Regulations Patient History Date of Service: 01/19/22 Reason for admission: Dyspnea, elevated troponin History of Present Illness: 86-year-old male with history of insulin-dependent diabetes, hypertension, hypothyroidism, chronic CHFunknown EF, hyperlipidemia, COPD presents the emergency department for 3 to 4 weeks of worsening dyspnea. He reports paroxysmal nocturnal dyspnea, dyspnea on exertion. He is evaluated in the emergency department his labs were significant for mildly elevated high- sensitivity troponin, elevated BNP chest x-ray is negative for acute findings. ED read wishes to admit under observation for suspected CHF exacerbation, dyspnea. Allergies amoxicillin [Amoxicillin] Adverse Reaction (Verified 10/02/20 10:13) increase in blood sugar Home Medications: Insulin Detemir [Levemir] 52 units SQ DAILY WITH BREAKFAST 10/26/11 Levothyroxine Sodium [Synthroid] 50 mcg PO DAILY 10/26/11 Atorvastatin Calcium 40 mg PO BEDTIME 07/17/20 Dextromethorphan/Guaifenesin 15 ml PO Q6H PRN 07/17/20 Gabapentin 100 mg PO BID 07/17/20 Insulin Detemir [Levemir] 18 - 20 unit SQ BEDTIME 07/17/20 Metformin HCl 1,000 mg PO BIDWM 07/17/20 Multivitamin 1 each PO DAILY 07/17/20 glipiZIDE [Glipizide] 10 mg PO BIDWM 07/17/20 hydrOXYzine HCL [Atarax*] 1 tab PO BEDTIME 07/17/20 Albuterol Sulfate [Proair Hfa] 2 puff IH TID PRN #1 hfa.aer.ad 07/18/20 Budesonide/Formoterol Fumarate [Symbicort 160-4.5 Mcg Inhaler] 2 puff IH BID #1 hfa.aer.ad 07/18/20 Losartan Potassium 50 mg PO DAILY #30 tablet 07/18/20 Pantoprazole [Protonix Tab] 40 mg PO DAILY #30 tab 07/18/20 - Past Medical/Surgical History Diabetic: Yes -: DM 2. -: Hypertension -: Hypothyroidism -: Hyperlipidemia Psychosocial/ Personal History: Patient was at home, alone - Family History Father -: Heart disease Notes: artery disease - Social History Smoking Status: Former smoker Alcohol use: No CD- Drugs: No Caffeine use: Yes Place of Residence: Home Review of Systems 10-point ROS is otherwise unremarkable Respiratory: Shortness of Breath, SOB with Excertion Cardiovascular: Paroxysmal Noc. Dyspnea Physical Examination - Physical Exam General: Alert, In no apparent distress, Oriented x3 HEENT: Atraumatic, PERRLA, Mucous membr. moist/pink, EOMI, Sclerae nonicteric Neck: Supple, 2+ carotid pulse no bruit, No LAD, Without JVD or thyroid abnormality Respiratory: Normal air movement, Diminished Cardiovascular: No edema, Regular rate/rhythm, Normal S1 S2 Capillary refill: <2 Seconds Gastrointestinal: Normal bowel sounds, No tenderness Musculoskeletal: No tenderness Integumentary: No rashes Neurological: Normal gait, Normal speech, Normal strength at 5/5 x4 extr, Normal tone, Normal affect - Studies Laboratory Data (last 24 hrs) 01/19/22 16:18: WBC 7.60, Hgb 15.5, Hct 45.8, Plt Count 149 L 01/19/22 16:18: Sodium 138, Potassium 4.6, BUN 30 H, Creatinine 1.25, Glucose 201 H Assessment and Plan - Plan Assessment: Dyspnea, elevated troponin secondary to acute on 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 Patient reports he used to take a diuretic but stopped taking it "a while ago" he is unsure if his doctor discontinued it or he stopped on his own. Continue aspirin, statin, added low-dose oral Lasix. Echocardiogram ordered, cardiology consulted. Patient without chest pain this time. Diabetes mellitus type 2insulin-dependent: Sliding scale insulin, A1c in the morning. Hypertension: Continue home medications Hyperlipidemia: Continue home medications Hypothyroidism:Continue home medications COPD: No wheezing noted, as needed nebulizer treatment. DVT PPX: Lovenox Code status: Full Discharge Plan: Home Plan to discharge in: 24 Hours - Advance Directives Does patient have a Living Will: No Does patient have a Durable POA for Healthcare: No - Code Status/Comfort Care Code Status Assessed: Yes (Full code) Critical Care: No Time Spent Managing Pts Care (In Minutes): 70
[2022-01-19] MEDS ORDERED: ACETAMINOPHEN 500 MG TAB PO PRN (20:20)
[2022-01-19] MEDS ORDERED: ALBUTEROL 2.5 MG/3 ML NEB SOL NEB PRN (20:20)
[2022-01-19] MEDS ORDERED: ONDANSETRON 4 MG/2 ML VIAL IV PRN (20:20)
[2022-01-19] MEDS ORDERED: hydrOXYzine HCL 25 MG TAB PO ONE (20:46)
[2022-01-19] MEDS: ATORVASTATIN 40 MG TAB PO SCH (20:55)
[2022-01-19] MEDS: INSULIN -REGULAR HUMAN 50 UNIT/0.5 ML ML SQ SCH (20:56)
[2022-01-19 21:18] VITALS: BMI 28.1
[2022-01-20 03:10] LABS: Specific Gravity 1.018 (1.005-1.030); Urine Bilirubin NEGATIVE (Negative); Urine Blood Negative (Negative); Urine Clarity Clear (Clear); Urine Color Light-Yellow (Yellow); Urine Glucose 1+ (Negative); Urine Protein NEGATIVE (Negative); Urine RBC <5 /HPF (None Seen); Urine Urobilinogen Normal (Normal); Urine pH 6.5 (5.0-7.0)
[2022-01-20 03:52] LABS: Hematocrit 43.9 % (39.6-49.0); Lymphocytes % 32.1 % (15.3-44.8); MCV 93.1 fL (80-100); MPV 11.1 fL (7.6-11.3); RBC Red Blood Cell Count 4.71 M/uL (4.33-5.43)
[2022-01-20 04:06] LABS: Potassium 4.2 mmol/L (3.5-5.1); Troponin High Sensitivity 98.9 pg/mL (<58.9)
[2022-01-20] MEDS ORDERED: PNEUMOCOCCAL VACCINE 0.5 ML IMVAC ONE (08:00)
[2022-01-20] MEDS ORDERED: FUROSEMIDE 20 MG TABLET PO SCH (09:00)
[2022-01-20] MEDS: INSULIN -REGULAR HUMAN 50 UNIT/0.5 ML ML SQ SCH ×4 (10:06→20:45)
[2022-01-20] MEDS: ASPIRIN EC 81 MG TAB PO SCH (10:06)
[2022-01-20] MEDS: ENOXAPARIN 40 MG/0.4 ML SQ SCH (10:06)
[2022-01-20] MEDS: FUROSEMIDE 40 MG/4 ML VIAL IV SCH ×2 (11:32→16:46)
--- NOTE | 2022-01-20 13:39 | CON ---
Date of Consultation: 01/20/2022 Reason For Consultation: Shortness of breath, elevated troponin, and no chest pain. History Of Present Illness: Mr. Duffy is 86. Has diabetes, hypertension, hypothyroidism. Came in wi th shortness of breath. He complained mostly about his nose is stuffy and he cannot breathe. He den ied PND, orthopnea, pedal edema, palpitations, or syncope. Denied any fever or chills. So far, he h ad a catheterization in 2020, which was minimal, CAD. Chest x-ray was negative. Troponin was 99. B MANAGER STORAGE is 1063. Glucose was 193. Past Medical History: As stated above. Allergies: HE IS ALLERGIC TO PENICILLIN. Review of Systems: Negative. Social History: Negative. Family History: Negative. Medications: Include Lipitor, metformin, losartan, glipizide, insulin, Synthroid, and Protonix. Physical Examination: Vital Signs: Stable. He is afebrile. He is in sinus rhythm. HEENT: Negative. Neck: Supple with no bruit. Chest: Clear. Cardiac: Revealed a regular rhythm and rate. No murmurs, gallops, rubs. Abdomen: Benign. Extremities: Revealed no clubbing, cyanosis. He had trace edema. Impression And Plan: Possible new onset diastolic congestive heart failure. Echo pending. Continue his home regimen. Add a low dose diuretic. I will consider sending him home today after his echo. His diabetes, hypertension, and hypothyroidism are stable. He has minimal coronary artery disease a year ago, so we will plan to do any more invasive workup on him at this point. Case was discussed w mckayla Greene. We will see what the echo shows before making further decision before release. Now, we should add a low dose diuretic to his regimen. NB/MODL Voice ID: [id number] Report ID: [id number]
--- NOTE | 2022-01-20 13:47 | ECHO ---
HEIGHT: 6 ft 3 in WEIGHT: 225 lb 0 oz DATE OF STUDY: 01/20/[address]: Baldev Jauregui NP 2-DIMENSIONAL: YES M.MODE: YES DOPPLER: YES COLOR FLOW: YES TDS: NO PORTABLE: YES DEFINITY: NO BUBBLE STUDY: NO DIAGNOSIS: DYSPNEA CARDIAC HISTORY: CATHERIZATION: NO SURGERY: NO PROSTHETIC VALVE: NO PACEMAKER: NO MEASUREMENTS (cm) DIASTOLIC (NORMALS) SYSTOLIC (NORMALS) IVSd 1.3 (0.6-1.2) LA Diam 4.5 (1.9-4.0) LVEF 33% LVIDd 5.7 (3.5-5.7) LVIDs 4.8 (2.0-3.5) %FS 16% LVPWd 1.4 (0.6-1.2) Ao Diam 3.7 (2.0-3.7) 2 DIMENSIONAL ASSESSMENT: RIGHT ATRIUM: NORMAL LEFT ATRIUM: ENLARGED RIGHT VENTRICLE: NORMAL LEFT VENTRICLE: LEFT VENTRICULAR HYPERTROPHY TRICUSPID VALVE: MITRAL VALVE: PULMONIC VALVE: AORTIC VALVE: PERICARDIAL EFFUSION: NONE AORTIC ROOT: NORMAL LEFT VENTRICULAR WALL MOTION: MODERATE GLOBAL HYPOKINESIS. DOPPLER/COLOR FLOW: SEE BELOW. COMMENTS: 1. MODERATELY DEPRESSED LEFT VENTRICULAR EJECTION FRACTION 30-35% WITH MODERATE GLOBAL HYPOKINESIS. 2. LEFT ATRIAL ENLARGEMENT. 3. MILD CONCENTRIC LEFT VENTRICULAR HYPERTROPHY. 4. MILD MITRAL, AORTIC, TRICUSPID AND PULMONARY REGURGITATION. 5. DIASTOLIC DYSFUNCTION. TECHNOLOGIST: Emma MOORE
--- NOTE | 2022-01-20 17:56 | P.PN ---
Subjective Date of Service: 01/20/22 Chief Complaint: Dyspnea, elevated troponin Patient reports shortness of breath which he states has been present for about 3 months. He reported no changes in his shortness of breath compared to yesterday. He denies any chest pain. Physical Examination - Vital Signs Temperature: 97.5 F Blood Pressure: 115/71 Pulse: 83 Respirations: 18 Pulse Ox (%): 95 Assessment And Plan - Current Problems (Diagnosis) (1) Elevated d-dimer Current Visit: Yes Status: Acute (2) Type 2 diabetes mellitus with hyperglycemia Current Visit: Yes Status: Acute (3) Acute systolic heart failure Current Visit: Yes Status: Acute - Plan Physical Exam General: Alert, In no apparent distress, Oriented x3 Neck: Supple, no JVD elevation. Respiratory: Normal air movement, clear to auscultation bilaterally. Cardiovascular: No edema, Regular rate/rhythm, Normal S1 S2 Gastrointestinal: Normal bowel sounds, No tenderness, nondistended. Musculoskeletal: No tenderness Integumentary: No rashes Neurological: No focal motor deficit. Plan: Echocardiogram reviewed and reporting EF of 30 to 35%. Patient with acute systolic heart failure. Treat with IV Lasix. Monitor intake and output. Cardiology to follow Troponin trended flat. Elevated troponin likely secondary to demand ischemia. Insulin sliding scale for glucose management. Resume home dose long-acting insulin and glipizide. Hold metformin for now. Monitor and optimize electrolytes.
[2022-01-20] MEDS ORDERED: FLUTICASONE FUROATE NAS PRN (18:00)
[2022-01-20] MEDS: GABAPENTIN 100 MG CAP PO SCH (20:44)
[2022-01-20] MEDS: ATORVASTATIN 40 MG TAB PO SCH (20:45)
[2022-01-20] MEDS: SALMETEROL IH SCH (20:46)
[2022-01-20] MEDS: FLUTICASONE PROPION IH SCH (20:46)
[2022-01-20] MEDS ORDERED: hydrOXYzine HCL 25 MG TAB PO PRN (20:56)
[2022-01-20] MEDS ORDERED: ATORVASTATIN 40 MG TAB PO SCH (21:00)
[2022-01-20] MEDS ORDERED: TAMSULOSIN 0.4 MG SR CAP PO SCH (21:00)
[2022-01-20] MEDS ORDERED: INSULIN GLARGINE 100 UNIT/ML SQ SCH (21:00)
[2022-01-20] MEDS ORDERED: HOME MED 1 EA UNK (Insulin Detemir [Levemir] 100 UNIT/ML Vial) SQ SCH (21:00)
[2022-01-20] MEDS ORDERED: LOSARTAN POTASSIUM 50 MG TABLET PO SCH (21:00)
[2022-01-21 03:02] LABS: Absolute Lymphocytes (CBC) 1.5 K/uL (0.7-4.9); Hematocrit 44.6 % (39.6-49.0); Lymphocytes % 22.9 % (15.3-44.8); MCV 92.5 fL (80-100); MPV 11.1 fL (7.6-11.3); RBC Red Blood Cell Count 4.82 M/uL (4.33-5.43)
[2022-01-21 03:09] LABS: Potassium 4.2 mmol/L (3.5-5.1)
[2022-01-21] MEDS ORDERED: LEVOTHYROXINE SOD 0.025 MG TAB PO SCH (06:30)
[2022-01-21] MEDS ORDERED: HOME MED 1 EA UNK (Insulin Detemir [Levemir] 100 UNIT/1 ML Ml) SQ SCH (08:00)
[2022-01-21] MEDS ORDERED: glipiZIDE 5 MG TAB PO SCH (08:00)
[2022-01-21 08:29] VITALS: BP 107/68; TEMP 97.1
[2022-01-21] MEDS ORDERED: INSULIN GLARGINE 100 UNIT/ML SQ SCH (09:00)
[2022-01-21] MEDS ORDERED: PANTOPRAZOLE 40MG TABLET PO SCH (09:00)
[2022-01-21] MEDS ORDERED: ZINC SULFATE 220 MG CAP PO SCH (09:00)
[2022-01-21] MEDS: ENOXAPARIN 40 MG/0.4 ML SQ SCH (09:11)
[2022-01-21] MEDS: INSULIN -REGULAR HUMAN 50 UNIT/0.5 ML ML SQ SCH (09:12)
[2022-01-21] MEDS: FUROSEMIDE 40 MG/4 ML VIAL IV SCH (09:12)
[2022-01-21] MEDS: ASPIRIN EC 81 MG TAB PO SCH (09:13)
[2022-01-21] MEDS: GABAPENTIN 100 MG CAP PO SCH (09:13)
[2022-01-21] MEDS: FLUTICASONE PROPION IH SCH (09:23)
[2022-01-21] MEDS: SALMETEROL IH SCH (09:23)
[2022-01-21 10:40] VITALS: O2SAT 92
--- NOTE | 2022-01-21 10:53 | P.DS ---
Admission Date: 01/21/22 Discharge Date: 01/21/22 Disposition: ROUTINE DISCHARGE Discharge Condition: FAIR Reason for Admission: Dyspnea, elevated troponin - Problems (1) Elevated d-dimer Current Visit: Yes Status: Acute (2) Type 2 diabetes mellitus with hyperglycemia Current Visit: Yes Status: Acute (3) Acute systolic heart failure Current Visit: Yes Status: Acute Brief History of Present Illness: 86-year-old male with history of insulin-dependent diabetes, hypertension, hypothyroidism, chronic CHFunknown EF, hyperlipidemia, COPD presents the emergency department for 3 to 4 weeks of worsening dyspnea. He reports paroxysmal nocturnal dyspnea, dyspnea on exertion. He was evaluated in the emergency department and his labs were significant for mildly elevated high- sensitivity troponin, elevated BNP. Chest x-ray negative for acute findings. ED patient admitted for further management of CHF. Hospital Course: Troponin was mildly elevated but trended flat. Echocardiogram done showed EF of 30 to 35%. Patient was seen and evaluated by cardiology-Dr. Williamson. His shortness of breath and orthopnea improved significantly with IV Lasix. He was no longer orthopneic. He developed leg cramps likely related to the Lasix therapy. Patient has clinically improved and deemed stable for discharge. Dr. tSanford ok discharge and follow-up with him in the office as outpatient. He is prescribed low-dose Lasix maintenance. He is on losartan. Coreg could not be prescribed due to borderline low blood pressure. Vital Signs/Physical Exam: Temp Pulse Resp BP Pulse Ox 97.1 F 82 18 107/68 92 01/21/22 08:00 01/21/22 08:00 01/21/22 08:00 01/21/22 08:00 01/21/22 08:00 General: Alert, In no apparent distress, Oriented x3 HEENT: Mucous membr. moist/pink Neck: Supple, JVD not distended Respiratory: Clear to auscultation bilaterally, Normal air movement Cardiovascular: No edema, Regular rate/rhythm, Normal S1 S2 Gastrointestinal: Normal bowel sounds, Soft and benign, Non-distended, No tenderness Musculoskeletal: No swelling Integumentary: No rashes Neurological: Normal strength at 5/5 x4 extr Laboratory Data at Discharge: WBC 6.70 K/uL (4.3-10.9) 01/21/22 02:45 Hgb 15.3 g/dL (13.6-17.9) 01/21/22 02:45 Hct 44.6 % (39.6-49.0) 01/21/22 02:45 Plt Count 157 K/uL (152-406) 01/21/22 02:45 Sodium 136 mmol/L (136-145) 01/21/22 02:45 Potassium 4.2 mmol/L (3.5-5.1) 01/21/22 02:45 BUN 28 mg/dL (7-18) H 01/21/22 02:45 Creatinine 1.81 mg/dL (0.55-1.3) H 01/21/22 02:45 Glucose 240 mg/dL (74-106) H 01/21/22 02:45 Triglycerides 117 mg/dL (<150) 01/20/22 03:30 Cholesterol 138 mg/dL (<200) 01/20/22 03:30 HDL Cholesterol 40 mg/dL (40-60) 01/20/22 03:30 Cholesterol/HDL Ratio 3.45 01/20/22 03:30 Home Medications: Insulin Detemir [Levemir] 40 units SQ DAILY WITH BREAKFAST 10/26/11 Levothyroxine Sodium [Synthroid] 25 mcg PO DAILY 10/26/11 Atorvastatin Calcium 40 mg PO BEDTIME 07/17/20 Gabapentin 100 mg PO BID 07/17/20 Insulin Detemir [Levemir] 20 unit SQ BEDTIME 07/17/20 Metformin HCl 1,000 mg PO BIDWM 07/17/20 Multivitamin 1 each PO DAILY 07/17/20 glipiZIDE [Glipizide] 10 mg PO BIDWM 07/17/20 Pantoprazole [Protonix Tab*] 40 mg PO DAILY #30 tab 07/18/20 Losartan Potassium 50 mg PO BEDTIME 01/19/22 Zinc Gluconate [Zinc] 50 mg PO DAILY 01/19/22 Fluticasone Furoate [Flonase Sensimist] 27.5 mcg FELICIA DAILY PRN 01/20/22 Fluticasone Propion/Salmeterol [Wixela 500-50 Inhub] 1 puff IH BID 01/20/22 Tamsulosin HCl 0.4 mg PO BEDTIME 01/20/22 Aspirin [Aspirin EC 81 MG] 81 mg PO DAILY #30 tab 01/21/22 Cyclobenzaprine HCl [Flexeril] 5 mg PO TID PRN #20 tab 01/21/22 Furosemide [Lasix] 20 mg PO DAILY #30 tab 01/21/22 New Medications: Aspirin [Aspirin EC 81 MG] 81 mg PO DAILY #30 tab Cyclobenzaprine HCl [Flexeril] 5 mg PO TID PRN #20 tab PRN Reason: Muscle Spasms Furosemide [Lasix] 20 mg PO DAILY #30 tab Diet: ADA Activity: Ad pebbles Followup: Duncan Williamson MD [ACTIVE - CAN ADMIT] - 1 Week Herb Sloan MD [Primary Care Provider] - 1-2 Weeks Time spent managing pt's care (in minutes): 34
--- NOTE | 2022-01-21 16:23 | EKG ---
Test Date: 2022-01-21 Test Time: 02:03:35 Instrumentation Technologist: ZAK MEASUREMENT RESULTS: Intervals: Rate: 72 [place]: 118 QRSD: 122 QT: 450 QTc: 492 [place]: P: [place]: 118 QRS: -60 T: 123 INTERPRETIVE STATEMENTS: Normal sinus rhythm Left anterior fascicular block T wave abnormality, consider lateral ischemia Abnormal ECG Compared to ECG 01/19/2022 16:25:35 Myocardial infarct finding no longer present T-wave abnormality still present Possible ischemia still present Electronically Signed On 01-21-22 16:22:52 METAL MOVER by Duncan Williamson
--- NOTE | 2022-01-21 16:30 | EKG ---
Test Date: 2022-01-19 Test Time: 16:25:35 System Developer Associate Manager: ADRIANA MEASUREMENT RESULTS: Intervals: Rate: 82 IA: 180 QRSD: 106 QT: 382 QTc: 446 [place]: P: [place]: 180 QRS: -61 T: 94 INTERPRETIVE STATEMENTS: Normal sinus rhythm Left anterior fascicular block Septal infarct, age undetermined Cannot rule out Inferior infarct (masked by fascicular block?), age undetermined T wave abnormality, consider lateral ischemia Abnormal ECG Compared to ECG 11/24/2021 01:17:29 T-wave abnormality now present Possible ischemia now present Sinus tachycardia no longer present Ventricular premature complex(es) no longer present Myocardial infarct finding still present Electronically Signed On 01-21-22 16:23:27 HARNESS FITTER by Duncan Williamson
== END 2022-01-21 11:25 | disposition home or self-care (01) | DRG 291 ==
LOC: ER 13:34 → ERHOLD 19:08 → 4TH 19:38 → OBSVTOIN 01-21 10:21
PROVIDERS: ADMIT Internal Medicine; ATTEND Internal Medicine
DX: I11.0 Hypertensive heart disease with heart failure (principal); I50.21 Acute systolic (congestive) heart failure; E03.9 Hypothyroidism, unspecified; E11.65 Type 2 diabetes mellitus with hyperglycemia; E78.5 Hyperlipidemia, unspecified; J44.9 Chronic obstructive pulmonary disease, unspecified; I25.10 Atherosclerotic heart disease of native coronary artery without angina pectoris; T50.1X5A Adverse effect of loop [high-ceiling] diuretics, initial encounter; R25.2 Cramp and spasm; R77.8 Other specified abnormalities of plasma proteins; R79.89 Other specified abnormal findings of blood chemistry; Z60.2 Problems related to living alone; Z88.1 Allergy status to other antibiotic agents; Z79.4 Long term (current) use of insulin; Z88.0 Allergy status to penicillin; Z79.84 Long term (current) use of oral hypoglycemic drugs; Z79.82 Long term (current) use of aspirin; Z79.890 Hormone replacement therapy; Z87.891 Personal history of nicotine dependence; Z79.899 Other long term (current) drug therapy; Z20.822 Contact with and (suspected) exposure to COVID-19
CPT/HCPCS: 36415; 71045; 80048; 80061; 81001; 82947; 83036; 83880; 84484; 85025; 85379; 87811; 93005; 93306; 99285; G0378; J1650; J1815; J1940; J2405

== ENCOUNTER 2022-07-11 22:06 | Inpatient (IN) | payer OTHER ==
--- OUTSIDE RECORDS SUMMARY | 2022-07-11 22:09 | XMS REPORT | Continuity of Care Document ---
:1935 Author Organization [facility] t Address [address] [facility] [address] [place] [id number] Care Team Providers Name Role Phone Miller_S_AH Attending Clinician Unavailable Nimesh-Rosaayo_A_AH Attending Clinician Unavailable Miller_S_AH Admitting Clinician Unavailable Nimesh-Mbayo_A_AH Admitting Clinician Unavailable Payers Payer Name Policy Type Policy Number Effective Date Expiration Date S raymundo [facility] [place] - [id number] [employer] 00:00:00 (MEDICARE REPLACEMENT/ADVANT AGE - HMO) Problems Condition Condition Condition Status Onset Resolution Last Treating Co mments Source Name Details Category Date Date Treatment Clinician Date Type 2 Type 2 Problem Active [facility] diabetes Diabetes 1-24 Family mellitus Mellitus [...] Name atorvastati atorvastati No 1 Q1D atorvastat [place] n 40 mg n 40 mg in 40 mg Famil y tablet Take tablet Take tablet Practic 1 tablet 1 tablet Take 1 e every day every day tablet by oral by oral every day route. route. by oral route. gabapentin gabapentin No 1capsul TID gabapentin [facility] 100 mg 100 mg e(s) 100 mg Family capsule capsule capsule Practi c Take 1 Take 1 Take 1 e capsule 3 capsule 3 capsule 3 times a day times a day times a by oral by oral day by route. route. oral route. glipizide glipizide No 1 Q1D glipizide [facility] 10 mg 10 mg 10 mg Family tablet Take tablet Take tablet Practic 1 tablet 1 tablet Take 1 e every day every day tablet by oral by oral every day route. route. by oral route. hydroxyzine hydroxyzine No 1 TID hydroxyzin [facility] HCl 25 mg HCl 25 mg [...] route. levothyroxi levothyroxi No 1capsul Q1D levothyrox [facility] ne 50 mcg ne 50 mcg [...] route. metformin metformin No 1 BID metformin [facility] 1,000 mg 1,000 mg 1,000 mg Fam sheree tablet Take tablet Take tablet Practic 1 tablet 1 tablet Take 1 e twice a day twice a day tablet by oral by oral twice a route. route. day by oral route. Immunizations Ordered Immunization Filled Immunization Date Status Commen ts Source Name Name influenza, influenza, 2000-01-23 Completed [facility] injectable, injectable, 00:00:00 Practice quadrivalent quadrivalent Procedures This patient has no known procedures. Plan of Care Planned Activity Planned Date Details Comments Source Instructions [facility] Encounters Start End Encounter Admission Attending Care Care Encounter Source Date/Time Date/Time Type Type Clinicians Facility Department ID 2021-06-25 Outpatient STLMLC STLMLC [id number] Common 13:15:04 [id number] [facility] 2020-07-30 2020-07-30 Outpatient Miller_S_AH VFP VFP [phone] [facility] 05:12:00 05:12:00 [id number] [facility] 2020-03-29 2020-03-29 Outpatient Nimesh-Mbayo VFP VFP [phone] [facility] 03:07:00 03:07:00 _A_AH [id number] Family Practic e 2020-03-29 2020-03-29 Outpatient Nimesh-Mbayo VFP VFP [phone] [facility] 03:07:00 03:07:00 _A_AH [id number] Family Practic e 2020-03-18 2020-03-18 Outpatient Nimesh-Mbayo VFP VFP [phone] [facility] 08:24:00 08:24:00 _A_AH [id number] Family Practic e 2020-03-14 2020-03-14 Outpatient Nimesh-Mbayo VFP VFP [phone] [facility] 03:20:00 03:20:00 _A_AH [id number] Family Practic e 2020-03-14 2020-03-14 Mee VFP [place] - [id number] [facility] 00:00:00 00:00:00 Nimesh-Mbay [facility] José wilcox COUNTER CHECKER: Medical - Practi c [address] [email or web address] [facility], [address], [place] [address] , Ph. 2019-04-12 2019-04-12 Outpatient Nimesh-Mbayo VFP VFP [phone] [facility] 07:19:00 07:19:00 _A_AH [id number] Family Practic e 2019-04-12 2019-04-12 Outpatient Nimesh-Mbayo VFP VFP [id number] [facility] 07:19:00 07:19:00 _A_ [id number] Family Practic e Results This patient has no known results.
[2022-07-12 00:23] LABS: Absolute Lymphocytes (CBC) 2.1 K/uL (0.7-4.9); Hematocrit 46.3 % (39.6-49.0); Lymphocytes % 24.4 % (15.3-44.8); MPV 11.3 fL (7.6-11.3); RBC Red Blood Cell Count 4.98 M/uL (4.33-5.43)
[2022-07-12 00:41] LABS: Potassium 5.3 mEq/L (3.5-5.1); Troponin High Sensitivity 58.2 pg/mL (<58.9)
--- NOTE | 2022-07-12 00:59 | ER ---
Nurse's Notes [facility] Name: Kevin Duffy Age: 87 yrs Sex: Male : 1935 Arrival Date: 07/11/2022 Time: 22:06 Bed 6 Private MD: Diagnosis: Syncope Near;Unspecified atrial flutter Presentation: 07/11 23:01 Chief complaint: Patient states: I think i stood up too fast and my blood pressure is kd3 low. I blacked out but i did not fall, i caught myself. I have been having issues with my balance. Coronavirus screen: Vaccine status: Patient reports receiving the 2nd dose of the covid vaccine. Ebola Screen: No symptoms or risks identified at this time. Initial Sepsis Screen: Does the patient meet any 2 criteria? No. Patient's initial sepsis screen is negative. Does the patient have a suspected source of infection? No. Patient's initial sepsis screen is negative. Risk Assessment: Do you want to hurt yourself or someone else? Patient reports no desire to harm self or others. Onset of symptoms was July 11, 2022. 23:01 Method Of Arrival: Wheelchair kd3 23:01 Acuity: XIMENA 3 kd3 Triage Assessment: 23:04 General: Appears in no apparent distress. Behavior is calm, cooperative. Pain: Denies kd3 pain. Neuro: Level of Consciousness is awake, alert, obeys commands, Oriented to person, place, time, situation, Reports dizziness. Respiratory: Airway is patent Trachea midline Respiratory effort is even, unlabored, Respiratory pattern is regular, symmetrical. Historical: - Allergies: 23:04 No Known Allergies; kd3 - PMHx: 23:04 Diabetes - NIDDM; Hypertension; Hypothyroidism; kd3 - Immunization history:: Adult Immunizations up to date. - Social history:: Smoking status: Patient denies any tobacco usage or history of. Screenin/21 00:06 [facility] ED Fall Risk Assessment (Adult) History of falling in the last 3 months, ll3 including since admission No falls in past 3 months (0 pts) Confusion or Disorientation No (0 pts) Intoxicated or Sedated No (0 pts) Impaired Gait No (0 pts) Mobility Assist Device Used No (0 pt) Altered Elimination No (0 pt) Score/Fall Risk Level 0 - 2 = Low Risk Oriented to surroundings, Maintained a safe environment, Educated pt \T\ family on fall prevention, incl call for assistance when getting out of bed. Abuse screen: Denies threats or abuse. Denies injuries from another. Nutritional screening: No deficits noted. Tuberculosis screening: No symptoms or risk factors identified. Assessment: 00:04 General: Appears comfortable, Behavior is calm, cooperative. Pain: Denies pain. Neuro: ll3 Level of Consciousness is awake, alert, obeys commands, Oriented to person, place, time, situation, Reports dizziness. Cardiovascular: Rhythm is sinus rhythm. Cardiovascular: Reports Low BP at home. Respiratory: Respiratory effort is even, unlabored, Respiratory pattern is regular, symmetrical. Derm: Skin is pink, warm \T\ dry. Vital Signs: 07/11 23:01 BP 111 / 73; Pulse 90; Resp 19; Temp 97.2(TE); Pulse Ox 98% ; Weight 104.33 kg; Height kd3 6 ft. 3 in. ; 07/12 00:04 BP 110 / 71; Pulse 80; Resp 14; Pulse Ox 96% on R/A; ll3 01:00 BP 107 / 68; Pulse 73; Resp 21; Pulse Ox 95% on R/A; ll3 07/11 23:01 Body Mass Index 28.75 (104.33 kg, 190.5 cm) kd3 ED Course: 07/11 22:09 Patient arrived in ED. jj6 22:55 Javier Conde MD is Attending Physician. bs3 23:04 Triage completed. kd3 23:04 Arm band placed on right wrist. kd3 07/12 00:04 Initial lab(s) drawn, by mo, sent to lab. Inserted saline lock: 20 gauge in right 3 antecubital area, using aseptic technique. Blood collected. 00:07 Patient has correct armband on for positive identification. Bed in low position. Call 3 light in reach. Side rails up X 1. Adult w/ patient. 00:07 No provider procedures requiring assistance completed. ll3 00:16 XRAY Chest (1 view) In Process Unspecified. EDMS 00:58 Zee Vela MD is Hospitalizing Provider. bs3 02:05 Patient admitted, IV remains in place. ll3 Administered Medications: 01:32 CANCELLED (Duplicate Order): hydrOXYzine PO 25 mg PO once ll3 01:35 Drug: hydrOXYzine PO 25 mg Route: PO; ll3 02:06 Follow up: Response: No adverse reaction ll3 Medication: 01:28 VIS not applicable for this client. ll3 Point of Care Testing: Blood Glucose: 07/11 23:08 Blood Glucose: 186 mg/dL; kd3 Ranges: Outcome: 07/12 00:58 Decision to Hospitalize by Provider. bs3 02:05 Admitted to Med/surg accompanied by nurse, via wheelchair, room 210, with chart, Report ll3 called to [facility] 02:05 Condition: stable 02:05 Instructed on the need for admit, Demonstrated understanding of instructions. 02:07 Patient left the ED. ll3 Signatures: Dispatcher [employer] EDMS Suly Green jj6 Cortez Mcqueen RN RN ll3 Evonne Rincon RN RN kd3 Javier Conde MD MD bs3
--- NOTE | 2022-07-12 00:59 | EDPHYS ---
Physician Documentation [facility] Name: Kevin Duffy Age: 87 yrs Sex: Male : 1935 Arrival Date: 07/11/2022 Time: 22:06 Bed 6 Private MD: ED Physician Javier Conde HPI: 07/12 00:32 This 87 yrs old Male presents to ER via Wheelchair with complaints of bs3 Syncope, Dizziness, LOW BLOOD PRESSURE. 00:32 87-year-old male history of congestive heart failure hypertension diabetes presents bs3 with an episode of syncope today he notes that over the last several months his blood pressure in the afternoons has been getting low today and he stood up and then walked 10 feet and got lightheaded dizzy blacked out but did not fall or hit his head he now notes that he feels well he notes that he has to sleep in a chair because he gets significantly short of breath if he lays flat and cannot breathe and feels like he is choking this has been progressive over time he denies associated leg swelling denies fevers chills he notes an unchanged chronic cough no abdominal pain. Historical: - Allergies: 07/11 23:04 No Known Allergies; kd3 - PMHx: 23:04 Diabetes - NIDDM; Hypertension; Hypothyroidism; kd3 - Immunization history:: Adult Immunizations up to date. - Social history:: Smoking status: Patient denies any tobacco usage or history of. ROS: 07/12 00:32 Constitutional: Negative for fever, chills bs3 All other systems are negative. Exam: 00:32 Constitutional: Appears chronically ill Head/Face: Normocephalic, atraumatic. Eyes: bs3 Pupils equal round and reactive to light, extra-ocular motions intact. Lids and lashes normal. ENT: mmm, no posterior phyarngeal erythema Neck: Trachea midline, no thyromegaly, no neck stiffness Chest/axilla: Normal chest wall appearance and motion. Nontender with no deformity. No lesions are appreciated. Cardiovascular: Regular rate and rhythm with a normal S1 and S2. symmetric pulses in upper extremities Respiratory: Lungs have equal breath sounds bilaterally, clear to auscultation, no respiratory distress Abdomen/GI: Soft, non-tender, no rebound or guarding MS/ Extremity: Pulses equal, no cyanosis. Neurovascular intact. Full, normal range of motion. Neuro: Awake and alert, GCS 15, oriented to person, place, time, and situation. Cranial nerves II-XII grossly intact. Motor strength 5/5 in all extremities. Sensory grossly intact. Psych: Awake, alert, with orientation to person, place and time. Behavior, mood, and affect are within normal limits. 00:32 Atrial flutter at ED with PVCs QTc [address] elevations or depressions this is bs3 significantly changed from prior Vital Signs: 07/11 23:01 BP 111 / 73; Pulse 90; Resp 19; Temp 97.2(TE); Pulse Ox 98% ; Weight 104.33 kg; Height kd3 6 ft. 3 in. ; 07/12 00:04 BP 110 / 71; Pulse 80; Resp 14; Pulse Ox 96% on R/A; ll3 01:00 BP 107 / 68; Pulse 73; Resp 21; Pulse Ox 95% on R/A; ll3 07/11 23:01 Body Mass Index 28.75 (104.33 kg, 190.5 cm) kd3 MDM: 07/11 22:22 Patient medically screened. bs3 07/12 00:32 Differential Diagnosis: cardiac arrhythmia, cerebrovascular accident, vasovagal bs3 episode. Data reviewed: vital signs, nurses notes. ED course: Patient with near syncope likely secondary to his hypotension which she experiences daily this could be partially from his Entresto or his tamsulosin or his heart failure he may benefit from midodrine he also has new onset a flutter will admit for further work. 00:56 ED course: labs notable for normal dimer, . bs3 00:56 ED course: elevated bnp, xr with possible opacity, but afebrile, no leukocytosis, bs3 possible atelectasis, given syncope, hf, new aflutter, will admit. . 07/11 23:21 Order name: Glucose, Ancillary Testing; Complete Time: 00:49 EDMS 07/11 23:26 Order name: Basic Metabolic Panel; Complete Time: 00:49 bs3 07/11 23:26 Order name: CBC with Diff; Complete Time: 00:49 bs3 07/11 23:26 Order name: Troponin HS; Complete Time: 00:49 bs3 07/11 23:26 Order name: BNP; Complete Time: 00:49 bs3 07/11 23:26 Order name: D-Dimer; Complete Time: 00:49 bs3 07/11 23:26 Order name: XRAY Chest (1 view) bs3 07/11 23:26 Order name: EKG; Complete Time: 23:27 bs3 07/11 22:45 Order name: EKG - Nurse/Tech; Complete Time: 23:29 bs3 07/11 23:26 Order name: Cardiac monitoring; Complete Time: 23:35 bs3 07/11 23:26 Order name: IV Saline Lock; Complete Time: 00:03 bs3 07/11 23:26 Order name: Labs collected and sent; Complete Time: 00:03 bs3 07/11 23:26 Order name: O2 Per Protocol; Complete Time: 00:04 bs3 07/11 23:26 Order name: O2 Sat Monitoring; Complete Time: 00:04 bs3 Administered Medications: 01:32 CANCELLED (Duplicate Order): hydrOXYzine PO 25 mg PO once 3 01:35 Drug: hydrOXYzine PO 25 mg Route: PO; 3 02:06 Follow up: Response: No adverse reaction 3 Point of Care Testing: Blood Glucose: 07/11 23:08 Blood Glucose: 186 mg/dL; kd3 Ranges: Critical Glucose Levels:Adult <50 mg/dl or >400 mg/dl <40 mg/dl or >180 mg/dl Disposition Summary: 07/12/22 00:58 Hospitalization Ordered Hospitalization Status: Inpatient Admission bs3 Provider: Zee Vela bs3 Location: Telemetry/MedSurg (Inpatient) bs3 Condition: Fair bs3 Problem: new bs3 Symptoms: have improved bs3 Bed/Room Type: Standard bs3 Room Assignment: 210(07/12/22 01:23) kd3 Diagnosis - Syncope Near bs3 - Unspecified atrial flutter bs3 Forms: - Medication Reconciliation Form bs3 - SBAR form bs3 Signatures: Dispatcher [employer] Cortez Singleton RN RN 3 Evonne Rincon RN RN kd3 Javier Conde MD MD bs3 Kareen Faulkner PA-C PA-C sb4 Corrections: (The following items were deleted from the chart) 07/12 01:23 00:58 bs3 kd3 01:32 01:32 hydrOXYzine PO 25 mg PO once ordered. ll3 ll3
--- NOTE | 2022-07-12 01:25 | P.HP ---
Certification for Inpatient Patient admitted to: Inpatient With expected LOS: <2 Midnights Patient will require the following post-hospital care: None Practitioner: I am a practitioner with admitting privileges, knowledge of patient current condition, hospital course, and medical plan of care. Services: Services provided to patient in accordance with Admission requirements found in Title 42 Section 412.3 of the Code of Federal Regulations Patient History Date of Service: 07/12/22 Primary Care Provider: Salvador Rsosi Reason for admission: Syncope, New Aflutter History of Present Illness: Mr. Duffy is an 87 year old male with past medical history of hypertension, hyperlipidemia, hypothyroidism, insulin dependent type 2 diabetes, and chronic combined congestive heart failure who presented to the emergency department after multiple syncopal episodes. He states that he has noticed his blood pressure has been lower than usual. He notices that he feels weak and lightheaded when going from sitting to standing. EKG obtained in the emergency department revealed aflutter, new onset, rate controlled. He was also experiencing mild shortness of breath while speaking. Labs today are significant for sodium 134, potassium 5.3, BUN 34, BNP 1303. Chest xray showed "retrocardiac opacities could be due to atelectasis or infection." BP has been soft- 110s/70s. ED provider wishes to admit patient for further management. Allergies amoxicillin [Amoxicillin] Adverse Reaction (Verified 07/12/22 02:49) increase in blood sugar Home medications list reviewed: Yes Home Medications: Insulin Detemir [Levemir] 40 units SQ DAILY WITH BREAKFAST 10/26/11 Levothyroxine Sodium [Synthroid] 25 mcg PO DAILY 10/26/11 Atorvastatin Calcium 40 mg PO BEDTIME 07/17/20 Gabapentin 100 mg PO BID 07/17/20 Insulin Detemir [Levemir] 20 unit SQ BEDTIME 07/17/20 Metformin HCl 1,000 mg PO BIDWM 07/17/20 Multivitamin 1 each PO DAILY 07/17/20 glipiZIDE [Glipizide] 10 mg PO BIDWM 07/17/20 Pantoprazole [Protonix Tab*] 40 mg PO DAILY #30 tab 07/18/20 Losartan Potassium 50 mg PO BEDTIME 01/19/22 Zinc Gluconate [Zinc] 50 mg PO DAILY 01/19/22 Fluticasone Furoate [Flonase Sensimist] 27.5 mcg FELICIA DAILY PRN 01/20/22 Fluticasone Propion/Salmeterol [Wixela 500-50 Inhub] 1 puff IH BID 01/20/22 Tamsulosin HCl 0.4 mg PO BEDTIME 01/20/22 Aspirin [Aspirin EC 81 MG] 81 mg PO DAILY #30 tab 01/21/22 Cyclobenzaprine HCl [Flexeril] 5 mg PO TID PRN #20 tab 01/21/22 Furosemide [Lasix] 20 mg PO DAILY #30 tab 01/21/22 - Past Medical/Surgical History Diabetic: Yes -: DM 2- insulin dependent -: Hypertension -: Hypothyroidism -: Hyperlipidemia -: Congestive Heart Failure -: Coronary Artery Disease -: cyst removal on back Psychosocial/ Personal History: Patient lives at home, alone - Family History Father -: Heart disease Notes: artery disease - Social History Smoking Status: Never smoker Alcohol use: No CD- Drugs: No Caffeine use: No Place of Residence: Home Review of Systems Respiratory: SOB with Excertion Neurological: Other (Dizziness, Syncope) Physical Examination - Vital Signs Temperature: 97.2 F Blood Pressure: 107/68 Pulse: 73 Respirations: 21 Pulse Ox (%): 95 - Physical Exam General: Alert, In no apparent distress HEENT: Atraumatic, EOMI, Sclerae nonicteric Neck: Supple, 2+ carotid pulse no bruit Respiratory: Clear to auscultation bilaterally, Normal air movement Cardiovascular: Regular rate/rhythm, Normal S1 S2 Gastrointestinal: Normal bowel sounds, No tenderness Musculoskeletal: No tenderness Integumentary: No rashes Neurological: Normal speech, Normal affect - Studies Laboratory Data (last 24 hrs) 07/11/22 23:59: WBC 8.40, Hgb 15.6, Hct 46.3, Plt Count 144 L 07/11/22 23:59: Sodium 134 L, Potassium 5.3 H, BUN 34 H, Creatinine 1.21, Glucose 195 H Assessment and Plan - Problems (Diagnosis) (1) Atrial flutter Current Visit: Yes Status: Acute Qualifiers: Atrial flutter type: unspecified Qualified Code(s): I48.92 - Unspecified atrial flutter (2) Syncope Current Visit: Yes Status: Acute Qualifiers: Syncope type: unspecified Qualified Code(s): R55 - Syncope and collapse (3) Congestive heart failure Current Visit: Yes Status: Chronic Qualifiers: Heart failure type: combined systolic and diastolic Heart failure chronicity: chronic Qualified Code(s): I50.42 - Chronic combined systolic (congestive) and diastolic (congestive) heart failure (4) Hypertension Current Visit: Yes Status: Chronic Qualifiers: Hypertension type: primary hypertension Qualified Code(s): I10 - Essential (primary) hypertension (5) Hyperlipidemia Current Visit: Yes Status: Chronic Qualifiers: Hyperlipidemia type: mixed hyperlipidemia Qualified Code(s): E78.2 - Mixed hyperlipidemia (6) Hypothyroidism Current Visit: Yes Status: Chronic Qualifiers: Hypothyroidism type: unspecified Qualified Code(s): E03.9 - Hypothyroidism, unspecified (7) Type 2 diabetes mellitus Current Visit: Yes Status: Chronic Qualifiers: Diabetes mellitus residential insulin use: with residential use Diabetes mellitus complication status: with hyperglycemia Qualified Code(s): E11.65 - Type 2 diabetes mellitus with hyperglycemia; Z79.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 transplanted heart: [place] heart Associated angina: without angina Qualified Code(s): I25.10 - Atherosclerotic heart disease of [place] coronary artery without angina pectoris - Plan Patient is admitted for further management of new onset aflutter and syncope. Consult cardiology. Monitor on telemetry. Syncope likely secondary to orthostatic hypotension. Obtain orthostatic vitals, echocardiogram, and carotid US. Last echo on file from 2021 showed EF of 30-35% with left atrial enlargement, ventricular hypertrophy, and diastolic dysfunction. BP meds and flomax likely causing hypotension. Will need medications adjusted. ACHS accu checks with mild sliding scale and diabetic diet. Check lipid panel, A1c, and TSH. Monitor and replete electrolytes per protocol. Reconcile and continue home medications. Lovenox for VTE prophylaxis. Full code. Discharge Plan: Home Plan to discharge in: 48 Hours - Advance Directives Does patient have a Living Will: No Does patient have a Durable POA for Healthcare: No - Code Status/Comfort Care Code Status Assessed: Yes Code Status: Full Code Physician Review: Patient Assessed, Agree with Above Assessment and Plan Critical Care: No Time Spent Managing Pts Care (In Minutes): 50
[2022-07-12] MEDS ORDERED: hydrOXYzine HCL 25 MG TAB ONE (01:40)
[2022-07-12] MEDS ORDERED: ACETAMINOPHEN 500 MG TAB PO PRN (02:09)
[2022-07-12] MEDS ORDERED: ONDANSETRON 4 MG/2 ML VIAL IV PRN (02:09)
[2022-07-12] MEDS ORDERED: FUROSEMIDE 20 MG/ 2ML VIAL IV ONE (02:58)
[2022-07-12] MEDS ORDERED: NA CHLORIDE 0.9% 250 ML IV ONE (02:58)
[2022-07-12 03:02] VITALS: BMI 29.3
[2022-07-12 04:07] LABS: Thyroid Stimulating Hormone 7.26 uIU/mL (0.358-3.740)
[2022-07-12 04:20] LABS: Albumin 3.5 g/dL (3.4-5.0); Bilirubin Total 0.4 mg/dL (0.2-1.0); Potassium 4.6 mEq/L (3.5-5.1); Protein, Total 6.8 g/dL (6.4-8.2)
[2022-07-12 04:33] VITALS: O2SAT 95
[2022-07-12] MEDS: INSULIN -REGULAR HUMAN 50 UNIT/0.5 ML ML SQ SCH ×4 (07:30→21:00)
[2022-07-12] MEDS ORDERED: ENOXAPARIN 40 MG/0.4 ML SQ SCH (09:00)
[2022-07-12] MEDS: ASPIRIN 81 MG CHEWABLE TABLET PO SCH (09:04)
--- NOTE | 2022-07-12 09:17 | RAD REPORT ---
EXAM DESCRIPTION: US - CP - 07/12/2022 7:10 am CLINICAL HISTORY: syncope Headache, drowsiness COMPARISON: Carotid Artery Bilateral dated 07/17/2020 TECHNIQUE: Real-time sonographic evaluation of both carotid systems was performed. Doppler interroga tion was performed with waveform tracing bilaterally. FINDINGS: Normal high resistance waveforms are noted in both external carotid arteries. The common c arotid arteries and internal carotid arteries show normal low resistance waveforms. Moderate hard plaque seen in both bulbs. Peak systolic and end diastolic velocity values and the ICA/ CCA ratios are in the non-hemodynamically significant range. Neither vertebral artery well visualized. IMPRESSION: Moderate hard plaque is seen both carotid bulbs. No evidence of a hemodynamically significant stenosis. Vertebral artery is well visualized. CTA or MRA of the neck vessels may be useful further evaluation.
[2022-07-12] MEDS: PANTOPRAZOLE 40MG TABLET PO SCH (14:57)
--- NOTE | 2022-07-12 17:29 | CON ---
Date of Consultation: 07/12/2022 Reason For Consultation: Syncope and atrial flutter. History Of Present Illness: An 87-year-old male with history of hypertension, dyslipidemia, hypothyr oidism, diabetes, heart failure, presented of syncopal episodes. He stood up to have supper and felt lightheaded and collapsed on the floor. EKG in the emergency room was atrial flutter with rate cont rolled. Does not have any chest pain. Has shortness of breath on exertion. Past Medical History: As outlined above in the HPI. Medications: Refer to reconciliation sheet for detailed list. Allergies: AMOXICILLIN. Family History: No premature coronary artery disease or cancer. Social History: He does not smoke or drink. Does not use any drugs. Review of Systems: All systems reviewed and they were negative except what mentioned in HPI. Physical Examination: Vital Signs: Temperature is 97.5, heart rate 95, breathing at 18, blood pressure 145/75. General: Pleasant elderly male, in no apparent distress. Head and Neck: Pupils are equal, reactive to light. Intact eye movements. No JVD. No cervical lym phadenopathy. Neck is supple. Thyroid is not enlarged. Lungs: Clear to auscultation bilaterally. No rhonchi, wheezing, or crackles. No accessory muscle u se. Heart: Irregular. No extra sounds. Abdomen: Soft, nontender. Bowel sounds positive. No organomegaly. No masses or hernia. No rigidi ty or rebound. Extremities: No edema, clubbing, or cyanosis. Intact pulses. Skin: No rash. Neurologic: Alert, awake, oriented x3. No acute focal deficits appreciated. Lymph Nodes: No cervical or axillary lymphadenopathy. Investigations: Troponin is 62, BUN 31, creatinine 1.1. TSH 7.2, hemoglobin is 15.6. Assessment And Recommendations: 1.Atrial flutter. Rate is borderline. Recommend IV amiodarone load for 24 hours and then plan for a BRENT-guided cardioversion and start the patient on Eliquis 5 mg twice a day. 2.Syncope. No abnormalities on the telemetry so far. Obtain echo tomorrow and keep monitoring on t elemetry. Carotid Doppler did not show any significant stenosis. SR/MODL Voice ID: [id number] Report ID: [id number]
[2022-07-12] MEDS: SOTALOL HCL 80 MG TAB PO SCH (17:47)
[2022-07-12] MEDS ORDERED: MELATONIN 5 MG TABLET PO PRN (21:45)
[2022-07-12] MEDS: RIVAROXABAN 10 MG TABLET PO SCH (22:13)
[2022-07-13] MEDS ORDERED: DIPHENHYDRAMINE 25 MG TAB/CAP PO PRN (00:05)
[2022-07-13] MEDS: SOTALOL HCL 80 MG TAB PO SCH (05:37)
[2022-07-13] MEDS: PANTOPRAZOLE 40MG TABLET PO SCH (05:37)
[2022-07-13] MEDS: ASPIRIN 81 MG CHEWABLE TABLET PO SCH (10:04)
[2022-07-13] MEDS: INSULIN -REGULAR HUMAN 50 UNIT/0.5 ML ML SQ SCH ×3 (10:08→16:30)
--- NOTE | 2022-07-13 11:22 | RAD REPORT ---
EXAM DESCRIPTION: Chest Single View RadLex: XR CHEST 1 VIEW CLINICAL HISTORY: 87 years Male, DYSPNEA COMPARISON: 11/24/2021 FINDINGS: Single portable AP upright view of the chest. Cardiac silhouette is within normal limits. Left basilar opacification could be due to infection or atelectasis. No definite pleural effusion. No pneumothorax. No acute osseous abnormality. IMPRESSION: Retrocardiac opacities could be due to atelectasis or infection. Electronically signed by: Daniela Hough MD 07/12/2022 12:43 AM CDT Due to temporary technical issues with the PACS/Fluency reporting system, reports are being signed by the in house radiologist without review as a courtesy to ensure prompt reporting. The interpreting r adiologist is fully responsible for the content of the report.
--- NOTE | 2022-07-13 15:24 | EKG ---
Test Date: 2022-07-11 Test Time: 23:26:22 Master Rigger: LAYO MEASUREMENT RESULTS: Intervals: Rate: 80 IL: QRSD: 114 QT: 388 QTc: 447 [place]: P: 87 IL: QRS: -72 T: 43 INTERPRETIVE STATEMENTS: Atrial flutter with variable AV block with premature ventricular or aberrantly conducted complexes Left anterior fascicular block Cannot rule out Inferior infarct (masked by fascicular block?), age undetermined Possible Anterior infarct, age undetermined Abnormal ECG Compared to ECG 01/21/2022 02:03:35 Ventricular premature complex(es) now present Myocardial infarct finding now present Sinus rhythm no longer present T-wave abnormality no longer present Possible ischemia no longer present Electronically Signed On 07-13-22 15:21:58 CDT by Duncan Williamson
[2022-07-13 16:25] VITALS: BP 119/60; TEMP 97.1
[2022-07-13] MEDS ORDERED: SOTALOL HCL 80 MG TAB PO SCH (17:00)
[2022-07-13] MEDS: RIVAROXABAN 10 MG TABLET PO SCH (17:16)
[2022-07-13] MEDS ORDERED: hydrOXYzine HCL 25 MG TAB PO PRN (17:57)
[2022-07-13] MEDS ORDERED: TAMSULOSIN 0.4 MG SR CAP PO SCH (21:00)
[2022-07-13] MEDS ORDERED: ATORVASTATIN 40 MG TAB PO SCH (21:00)
[2022-07-13] MEDS ORDERED: MONTELUKAST 10 MG TAB PO SCH (21:00)
[2022-07-13] MEDS ORDERED: GABAPENTIN 100 MG CAP PO SCH (21:00)
[2022-07-14] MEDS ORDERED: HOME MED 1 EA UNK (Metformin Hcl [Metformin Hcl] 1,000 MG Tablet) PO SCH (08:00)
[2022-07-14] MEDS ORDERED: HOME MED 1 EA UNK (Glipizide [Glipizide] 10 MG Tablet) PO SCH (08:00)
[2022-07-14] MEDS ORDERED: LEVOTHYROXINE SOD 0.05 MG TABLET PO SCH (09:00)
[2022-07-14] MEDS ORDERED: HOME MED 1 EA UNK (Multivitamin [Multivitamin] Tablet) PO SCH (09:00)
[2022-07-14] MEDS ORDERED: ASPIRIN EC 81 MG TAB PO SCH (09:00)
--- NOTE | 2022-07-15 11:55 | PN ---
Date of Progress Note: 07/13/2022 Mr. Duffy had been admitted and seen by Dr. Stallworth on 07/12/2022 because of hypotension, syncope, atri al fibrillation. The patient has remained on sotalol and Xarelto despite the fact that Dr. Stallworth coates s recommended IV amiodarone drip. The patient remained in atrial fibrillation. Blood pressure is no rmotensive now. He is on sotalol 80 b.i.d. He is on Xarelto. He wants to go home. He is not havin g any complaint. We will set him up for discharge by Dr. Vela. He will see us in the office in the very near future. If he remains in atrial fibrillation, we would consider BRENT cardioversion or an EP O further. VAHID/DEBBI Voice ID: [id number] Report ID: [id number]
== END 2022-07-13 18:04 | disposition home or self-care (01) | DRG 312 ==
LOC: ER 22:06 → 2ND 07-12 01:20
PROVIDERS: ADMIT Hospitalist; ATTEND Hospitalist
DX: I95.1 Orthostatic hypotension (principal); I48.92 Unspecified atrial flutter; I50.42 Chronic combined systolic (congestive) and diastolic (congestive) heart failure; I11.0 Hypertensive heart disease with heart failure; E11.65 Type 2 diabetes mellitus with hyperglycemia; E03.9 Hypothyroidism, unspecified; E78.2 Mixed hyperlipidemia; I49.3 Ventricular premature depolarization; I25.10 Atherosclerotic heart disease of native coronary artery without angina pectoris; Z60.2 Problems related to living alone; Z79.4 Long term (current) use of insulin; Z88.1 Allergy status to other antibiotic agents; Z79.890 Hormone replacement therapy; Z79.84 Long term (current) use of oral hypoglycemic drugs; Z79.82 Long term (current) use of aspirin; Z79.899 Other long term (current) drug therapy
CPT/HCPCS: 36415; 71045; 80048; 80053; 80061; 82947; 83880; 84439; 84443; 84484; 85025; 85379; 93005; 93880; 99285; J1650; J1815; J1940; J2405; J7050